=== PATIENT | female | born 1975 | race Caucasian/White ===

== ENCOUNTER → 2019-10-10 | Outpatient (CLI) | payer MEDICAID ==
[~2019-10-10] MED LIST: BUSP10TA95 PO; HYDR-2997 PO; LORA1TAB PO; METR500T PO; OMEP20TA7 PO; OXYC1TAB87 PO; RANI300T4 PO; VORT10TA PO; ZOLP10TA5 PO
[2019-10-10 11:27] LABS: HEMOGLOBIN 10.5 G/DL (11.5-16.0); MEAN CORPUSCULAR HEMOGLOBIN 28 PG (25-34); WHITE BLOOD COUNT 6.3 10^3/uL (4.3-11.0)
[2019-10-10 11:28] LABS: BASOPHILS % (AUTO) 1 % (0-10); EOSINOPHILS # (AUTO) 0.2 10^3/uL (0.0-0.3); EOSINOPHILS % (AUTO) 3 % (0-10); HEMATOCRIT 35 % (35-52); LYMPHOCYTES # (AUTO) 1.8 X 10^3 (1.0-4.0); LYMPHOCYTES % (AUTO) 29 % (12-44); MEAN CORPUSCULAR HGB CONC 30 G/DL (32-36); MEAN CORPUSCULAR VOLUME 92 FL (80-99); MEAN PLATELET VOLUME 9.8 FL (7.4-10.4); MONOCYTES # (AUTO) 0.6 X 10^3 (0.0-1.0); MONOCYTES % (AUTO) 9 % (0-12); NEUTROPHILS # (AUTO) 3.7 X 10^3 (1.8-7.8); NEUTROPHILS % (AUTO) 59 % (42-75); PLATELET COUNT 281 10^3/uL (130-400); RED CELL DISTRIBUTION WIDTH 14.8 % (10.0-14.5)
[2019-10-10 11:52] LABS: CLARITY,URINE CLEAR; COLOR,URINE YELLOW
[2019-10-10 11:53] LABS: BACTERIA,URINE NEGATIVE /HPF; BILIRUBIN,URINE NEGATIVE (NEGATIVE); GLUCOSE, URINE (UA) NEGATIVE (NEGATIVE); KETONES,URINE NEGATIVE (NEGATIVE); LEUKOCYTE ESTERASE ,URINE NEGATIVE (NEGATIVE); NITRITE,URINE NEGATIVE (NEGATIVE); PROTEIN,URINE NEGATIVE (NEGATIVE); RBC,URINE 0-2 /HPF; WBC,URINE 0-2 /HPF
[2019-10-10 11:54] LABS: ALANINE AMINOTRANSFERASE 5 U/L (0-55); ALKALINE PHOSPHATASE 91 U/L (40-136); BILIRUBIN,TOTAL 0.2 MG/DL (0.1-1.0); BUN/CREATININE RATIO 10; CALCIUM 7.6 MG/DL (8.5-10.1); CARBON DIOXIDE 28 MMOL/L (21-32); CHLORIDE 106 MMOL/L (98-107); GFR ESTIMATED > 60; GLUCOSE 84 MG/DL (70-105); POTASSIUM 3.8 MMOL/L (3.6-5.0); SODIUM 143 MMOL/L (135-145); TOTAL PROTEIN 5.6 GM/DL (6.4-8.2)
[2019-10-10 11:55] LABS: ALBUMIN 2.7 GM/DL (3.2-4.5)
== END ==
LOC: LAB FS 10:56
PROVIDERS: ATTEND Family Medicine
DX: J02.9 Acute pharyngitis, unspecified (principal); R11.2 Nausea with vomiting, unspecified
CPT/HCPCS: 36415; 80053; 81000; 82607; 85025

== ENCOUNTER 2019-10-12 11:28 | Outpatient (CLI) | payer MEDICAID ==
[~2019-10-12] VITALS: Ht 160 cm; Wt 85.0 kg
[~2019-10-12 11:28] MED LIST changes: -BUSP10TA95 PO; -LORA1TAB PO; -RANI300T4 PO; -VORT10TA PO; -ZOLP10TA5 PO
[2019-10-12 11:33] VITALS: BP 133/90
[2019-10-12] MEDS ORDERED: IRON SUCROSE INJECTION 300 MG in NS (IVPB) 250 ML IV ONE (11:45)
[2019-10-12] MEDS ORDERED: BUSP10TA95 PO (12:16)
[2019-10-12] MEDS ORDERED: ZOLP10TA5 PO (12:16)
[2019-10-12] MEDS ORDERED: LORA1TAB PO (12:16)
[2019-10-12] MEDS ORDERED: RANI300T4 PO (12:16)
[2019-10-12] MEDS ORDERED: VORT10TA PO (12:16)
== END 2019-10-12 13:45 | disposition home or self-care (01) ==
LOC: SDC 11:28
PROVIDERS: ATTEND Family Medicine
DX: E61.1 Iron deficiency (principal)
CPT/HCPCS: 96365

== ENCOUNTER 2020-01-04 15:05 | Emergency (ER) | payer MEDICAID ==
[~2020-01-04] VITALS: Ht 160 cm; Wt 71.0 kg
[~2020-01-04 15:05] MED LIST changes: +BUSP10TA95 PO; +LORA1TAB PO; +RANI300T4 PO; +VORT10TA PO; +ZOLP10TA5 PO
--- NOTE | 2020-01-04 15:16 | ED General ---
General Stated Complaint: DEHYDRATED,ABD PAIN History of Present Illness Date Seen by Provider: Jan 04, 2020 Time Seen by Provider: 15:16 Initial Comments Patient presenting to emergency department for evaluation of abdominal pain nausea vomiting. Patient had gastric bypass surgery in February 2019 and said she was doing well until 2-3 months ago when she started having these symptoms. She says the abdominal pain is epigastric sharp and radiates straight through to her back and is worse after eating. The nausea and vomiting she says happens after eating anything and she says that she feels very malnourished and dehydrated and feels as if she her body is shutting down and that she is dying. She says she has followed with her primary care provider and surgeon but no definitive diagnosis has been made. She denies fevers chills diarrhea constipation dysuria hematuria vaginal bleeding or vaginal discharge. She is in no obvious distress with normal vital signs. Allergies and Home Medications Allergies Coded Allergies: morphine (Unverified Adverse Reaction, Unknown, 10/12/19) Home Medications Buspirone HCl 10 Mg Tablet, 10 MG PO BID, (Reported) Lorazepam 1 Mg Tablet, 1 MG PO BID, (Reported) Ondansetron 4 Mg Tab.rapdis, 4 MG PO Q6H PRN for NAUSEA/VOMITING-1ST LINE Prescribed by: LEO RIOS on 01/04/201740 Potassium Chloride 20 Meq Tablet.er, 20 MEQ PO DAILY Prescribed by: LEO RIOS on 01/04/201740 Ranitidine HCl 300 Mg Tablet, 300 MG PO DAILY, (Reported) Vortioxetine Hydrobromide 10 Mg Tablet, 15 MG PO DAILY, (Reported) Zolpidem Tartrate 10 Mg Tablet, 10 MG PO HS, (Reported) Patient Home Medication List Home Medication List Reviewed: Yes Review of Systems Review of Systems Constitutional: no symptoms reported EENTM: no symptoms reported Respiratory: no symptoms reported Cardiovascular: no symptoms reported Gastrointestinal: abdominal pain, nausea, vomiting Genitourinary: no symptoms reported Musculoskeletal: back pain Skin: no symptoms reported Psychiatric/Neurological: No Symptoms Reported All Other Systems Reviewed Negative Unless Noted: Yes Past Gkfwury-Jminqr-Vvkvsn Hx Patient Social History Type Used: Cigarettes Recent Foreign Travel: No Contact w/Someone Who Travel: No Past Medical History Appendectomy, Gallbladder, Hysterectomy, Lumpectomy, Orthopedic Reproductive Disorders: No Female Reproductive Disorders: Denies Sexually Transmitted Disease: No HIV/AIDS: No Gastroesophageal Reflux, Chronic Diarrhea Loss of Vision: Denies Hearing Impairment: Denies Anxiety, Depression Adverse Reaction/Blood Tranf: No (N/A) Physical Exam Vital Signs Vital Signs - First Documented 01/04/20 15:25 Temp 37.3 Pulse 111 Resp 18 B/P (MAP) 147/94 (111) Pulse Ox 99 O2 Delivery Room Air Capillary Refill : Height, Weight, BMI Height: 5'3.00" Weight: 252lbs. 2.0oz. 114.376013zo; 41.93 BMI Method:Stated General Appearance: No Apparent Distress, WD/WN HEENT: PERRL/EOMI Neck: Supple Respiratory: No Respiratory Distress Cardiovascular: Regular Rate, Rhythm Gastrointestinal: Soft; No Guarding, No Rebound; Tenderness (epigastrum) Back: Normal Inspection Extremity: Normal Capillary Refill Neurologic/Psychiatric: Alert, Oriented x3 Skin: Warm/Dry Progress/Results/Core Measures Suspected Sepsis SIRS Temperature: Pulse: Respiratory Rate: Laboratory Tests 01/04/20 15:30: White Blood Count 9.4 Blood Pressure / Mean: Laboratory Tests 01/04/20 15:30: Creatinine 0.69, Platelet Count 351, Total Bilirubin 0.3 Results/Orders Lab Results Laboratory Tests Test 01/04/20 15:30 Range/Units White Blood Count 9.4 4.3-11.0 10^3/uL Red Blood Count 4.15 L 4.35-5.85 10^6/uL Hemoglobin 12.1 11.5-16.0 G/DL Hematocrit 37 35-52 % Mean Corpuscular Volume 90 80-99 FL Mean Corpuscular Hemoglobin 29 25-34 PG Mean Corpuscular Hemoglobin Concent 32 32-36 G/DL Red Cell Distribution Width 15.0 H 10.0-14.5 % Platelet Count 351 130-400 10^3/uL Mean Platelet Volume 10.1 7.4-10.4 FL Neutrophils (%) (Auto) 64 42-75 % Lymphocytes (%) (Auto) 28 12-44 % Monocytes (%) (Auto) 6 0-12 % Eosinophils (%) (Auto) 1 0-10 % Basophils (%) (Auto) 0 0-10 % Neutrophils # (Auto) 6.0 1.8-7.8 X 10^3 Lymphocytes # (Auto) 2.7 1.0-4.0 X 10^3 Monocytes # (Auto) 0.6 0.0-1.0 X 10^3 Eosinophils # (Auto) 0.1 0.0-0.3 10^3/uL Basophils # (Auto) 0.0 0.0-0.1 10^3/uL Sodium Level 139 135-145 MMOL/L Potassium Level 2.9 L 3.6-5.0 MMOL/L Chloride Level 101 98-107 MMOL/L Carbon Dioxide Level 27 21-32 MMOL/L Anion Gap 11 5-14 MMOL/L Blood Urea Nitrogen 10 7-18 MG/DL Creatinine 0.69 0.60-1.30 MG/DL Estimat Glomerular Filtration Rate > 60 BUN/Creatinine Ratio 14 Glucose Level 92 70-105 MG/DL Calcium Level 8.7 8.5-10.1 MG/DL Corrected Calcium 9.0 8.5-10.1 MG/DL Magnesium Level 2.0 1.6-2.4 MG/DL Total Bilirubin 0.3 0.1-1.0 MG/DL Aspartate Amino Transf (AST/SGOT) 11 5-34 U/L Alanine Aminotransferase (ALT/SGPT) 5 0-55 U/L Alkaline Phosphatase 117 40-136 U/L Total Protein 6.8 6.4-8.2 GM/DL Albumin 3.6 3.2-4.5 GM/DL Lipase 19 8-78 U/L My Orders Orders - LEO RIOS DO Cbc With Automated Diff (01/04/20 15:26) Comprehensive Metabolic Panel (01/04/20 15:26) Lipase (01/04/20 15:26) Magnesium (01/04/20 15:26) Ct Abdomen/Pelvis W (01/04/20 15:26) Ua Culture If Indicated (01/04/20 15:26) Ns Iv 1000 Ml (Sodium Chloride 0.9%) (01/04/20 15:30) Hcg,Qualitative Urine (01/04/20 15:26) Fentanyl Injection (Sublimaze Injection (01/04/20 15:45) Ondansetron Injection (Zofran Injectio (01/04/20 15:45) Iohexol Injection (Omnipaque 350 Mg/Ml 1 (01/04/20 15:45) Received Contrast (Hold Metformin- Contr (01/04/20 15:45) Sodium Chloride Flush (Catheter Flush Sy (01/04/20 15:45) Ns (Ivpb) (Sodium Chloride 0.9% Ivpb Bag (01/04/20 15:45) Potassium Chloride (Tablet) (K Dur Table (01/04/20 16:30) Ns Iv 1000 Ml (Sodium Chloride 0.9%) (01/04/20 18:00) Medications Given in ED Current Medications Medications Dose Ordered Sig/Noa Route Start Time Stop Time Status Last Admin Dose Admin Fentanyl Citrate 75 mcg ONCE ONCE IVP 01/04/20 15:45 01/04/20 15:46 DC 01/04/20 15:41 75 MCG Iohexol 100 ml ONCE ONCE IV 01/04/20 15:45 01/04/20 15:46 DC 01/04/20 17:27 100 ML Ondansetron HCl 4 mg ONCE ONCE IVP 01/04/20 15:45 01/04/20 15:46 DC 01/04/20 15:41 4 MG Potassium Chloride 40 meq ONCE ONCE PO 01/04/20 16:30 01/04/20 16:31 DC 01/04/20 16:32 40 MEQ Sodium Chloride 10 ml NEEDED PRN IV 01/04/20 15:45 01/04/20 17:27 10 ML Sodium Chloride 100 ml ONCE ONCE IV 01/04/20 15:45 01/04/20 15:46 DC 01/04/20 17:26 100 ML Vital Signs/I&O 01/04/20 15:25 Temp 37.3 Pulse 111 Resp 18 B/P (MAP) 147/94 (111) Pulse Ox 99 O2 Delivery Room Air Capillary Refill : Progress Note : Progress Note Patient with nonspecific abdominal pain nausea vomiting seems to be worse after eating. Differential diagnosis is quite wide at this time however given the description gastric etiology is most likely in my opinion. I will check labs urinalysis CT treat symptoms and reassess. Patient given fentanyl and Zofran and her pain and nausea have improved and she has repeat benign abdominal exam is able to take down fluids and potassium pills with no difficulty. Patient seems to be complaining mostly that she has felt weak and tired over the past several months and I reassured her there is nothing life-threatening going on at this time and some of her symptoms may be related to her low potassium said recommended taking in more potassium-containing foods and Gatorade. I told her follow with her primary care provider within 2-3 days and come back to the emergency Department sooner with worsening pain fevers vomiting or other general concerns. Patient aware and agreeable with plan and verbalized understanding of the need for short-term follow-up and strict ED return precautions discussed as above. Of note the incidental liver hemangioma was discussed and the need for follow-up and she verbalized understanding. Departure Impression Primary Impression: Abdominal pain Qualified Codes: R10.13 - Epigastric pain Additional Impressions: Nausea and vomiting Hypokalemia Disposition: HOME, SELF-CARE Condition: Stable Departure-Patient Inst. Referrals: LIBBY BROWN MD (PCP/Family) Primary Care Physician Patient Instructions: High Potassium Diet, Hypokalemia Scripts Potassium Chloride (Potassium Chloride) 20 Meq Tablet.er 20 MEQ PO DAILY, #7 TAB Prov: LEO RIOS DO 01/04/20 Ondansetron (Ondansetron Odt) 4 Mg Tab.rapdis 4 MG PO Q6H PRN for NAUSEA/VOMITING-1ST LINE, #14 TAB Prov: LEO RIOS DO 01/04/20 LEO ROIS DO Jan 04, 2020 15:16
[2020-01-04] MEDS ORDERED: NS IV 1000 ML 1,000 ML IV SCH ×2 (15:30→18:00)
[2020-01-04] MEDS ORDERED: IOHEXOL 350 MG/ML 100 ML (OMNIPAQUE 350) VIAL IV ONE (15:45)
[2020-01-04] MEDS ORDERED: ONDANSETRON 4 MG/2 ML (SDV) Z0FRAN IVP ONE (15:45)
[2020-01-04] MEDS ORDERED: NS 100 ML (IVPB) BAG IV ONE (15:45)
[2020-01-04] MEDS ORDERED: fentaNYL INJECTION 100 MCG/2 ML AMP IVP ONE (15:45)
[2020-01-04] MEDS ORDERED: HOLD METFORMIN - RECEIVED CONTRAST 20 ML VIAL IV SCH (15:45)
[2020-01-04] MEDS ORDERED: CATHETER FLUSH 10 ML SYR IV PRN (15:45)
[2020-01-04 15:47] LABS: HEMATOCRIT 37 % (35-52); HEMOGLOBIN 12.1 G/DL (11.5-16.0); MEAN CORPUSCULAR HEMOGLOBIN 29 PG (25-34); WHITE BLOOD COUNT 9.4 10^3/uL (4.3-11.0)
[2020-01-04 15:48] LABS: BASOPHILS % (AUTO) 0 % (0-10); EOSINOPHILS # (AUTO) 0.1 10^3/uL (0.0-0.3); EOSINOPHILS % (AUTO) 1 % (0-10); LYMPHOCYTES # (AUTO) 2.7 X 10^3 (1.0-4.0); LYMPHOCYTES % (AUTO) 28 % (12-44); MEAN CORPUSCULAR HGB CONC 32 G/DL (32-36); MEAN CORPUSCULAR VOLUME 90 FL (80-99); MEAN PLATELET VOLUME 10.1 FL (7.4-10.4); MONOCYTES # (AUTO) 0.6 X 10^3 (0.0-1.0); MONOCYTES % (AUTO) 6 % (0-12); NEUTROPHILS % (AUTO) 64 % (42-75); PLATELET COUNT 351 10^3/uL (130-400)
[2020-01-04 15:58] LABS: BUN/CREATININE RATIO 14; CALCIUM 8.7 MG/DL (8.5-10.1); CARBON DIOXIDE 27 MMOL/L (21-32); CHLORIDE 101 MMOL/L (98-107); CREATININE SERUM 0.69 MG/DL (0.60-1.30); GFR ESTIMATED > 60; GLUCOSE 92 MG/DL (70-105); POTASSIUM 2.9 MMOL/L (3.6-5.0); SODIUM 139 MMOL/L (135-145)
[2020-01-04 15:59] LABS: ALANINE AMINOTRANSFERASE 5 U/L (0-55); ALBUMIN 3.6 GM/DL (3.2-4.5); ALKALINE PHOSPHATASE 117 U/L (40-136); BILIRUBIN,TOTAL 0.3 MG/DL (0.1-1.0); LIPASE 19 U/L (8-78); TOTAL PROTEIN 6.8 GM/DL (6.4-8.2)
[2020-01-04] MEDS ORDERED: KCL 20 MEQ TAB (K-DUR) PO ONE (16:30)
[2020-01-04] MEDS ORDERED: POTA-51 PO (17:41)
[2020-01-04] MEDS ORDERED: ONDA4TAB11 PO (17:41)
[2020-01-04] MEDS ORDERED: NS IV 1000 ML 1,000 ML ONE (17:48)
--- NOTE | 2020-01-04 17:59 | Diagnostic Imaging Report ---
PROCEDURE: CT abdomen and pelvis with contrast. TECHNIQUE: Multiple contiguous axial images were obtained through the abdomen and pelvis after administration of intravenous contrast. Auto Exposure Controls were utilized during the CT exam to meet ALARA standards for radiation dose reduction. INDICATION: Nausea, vomiting, abdominal pain. COMPARISON: None available. FINDINGS: The visualized lung bases are clear. Diffusely decreased density of the liver, felt to relate to fatty infiltration of the liver. 8 mm focus of hyperenhancement is noted within the central aspect of the right hepatic lobe on the arterial-phase imaging. This is isoechoic on delayed imaging. Focal hypodensity is identified adjacent to the falciform ligament on both the arterial-phase and portal venous-phase imaging without definite mass effect. The spleen is unremarkable. Postsurgical changes of a gastric bypass are present. Cholecystectomy. The adrenal glands are unremarkable. The pancreas is unremarkable. Tiny sub 6 mm hypodensity within the inferior pole of the right kidney is too small to completely characterize. Otherwise, the bilateral kidneys are unremarkable. Bilateral ureters are unremarkable. No aneurysmal dilatation or dissection of the abdominal aorta. The urinary bladder is unremarkable. The uterus is not visualized, likely surgically absent. Moderate colonic diverticulosis without CT evidence of diverticulitis. Postsurgical changes of a prior appendectomy. No bowel obstruction or pneumatosis. No significant adenopathy, free air, or free fluid within the abdomen or pelvis. Limbus vertebra noted within the lumbar spine. No acute osseous abnormality. IMPRESSION: 1. Postsurgical changes of a gastric bypass without evidence of bowel obstruction. 2. 8 mm hyperenhancing focus within the central aspect of the right hepatic lobe. This is indeterminate and too small to completely characterize though favored to relate to a flash-filling hemangioma. Comparison to prior imaging would be recommended. If no prior imaging is available, then follow-up CT or MRI of the abdomen using hepatic mass protocol would be recommended in three to six months. This could also further evaluate the hypodensity adjacent to the falciform ligament favored to relate to focal fatty infiltration of the liver. 3. Colonic diverticulosis without CT evidence of diverticulitis. 4. Cholecystectomy, hysterectomy, and appendectomy. Dictated by: Dictated on workstation # [id number]
[2020-01-04 18:56] VITALS: BP 138/86
== END 2020-01-04 18:56 | disposition home or self-care (01) ==
LOC: EDUNIT# 15:05 → ER FS 15:07
DX: R10.13 Epigastric pain (principal); R11.2 Nausea with vomiting, unspecified; E87.6 Hypokalemia; F41.9 Anxiety disorder, unspecified; F32.9 Major depressive disorder, single episode, unspecified; K21.9 Gastro-esophageal reflux disease without esophagitis; Z88.5 Allergy status to narcotic agent; Z90.49 Acquired absence of other specified parts of digestive tract
CPT/HCPCS: 36415; 74177; 80053; 83690; 83735; 85025; 96361; 96374; 96375

== ENCOUNTER → 2020-07-28 | Outpatient (CLI) | payer MEDICAID ==
[~2020-07-28] MED LIST changes: +ONDA4TAB11 PO; +POTA-51 PO
--- NOTE | 2020-07-28 15:15 | Diagnostic Imaging Report ---
INDICATION: Injury to the left 4th toe 3 weeks ago. Pain 3 views of the toes of the left foot show no fracture, dislocation or other acute abnormality. IMPRESSION: No acute abnormality is seen. Dictated by: Dictated on workstation # [id number]
== END ==
LOC: RAD FS 14:19
PROVIDERS: ATTEND Family Medicine
DX: S99.922A Unspecified injury of left foot, initial encounter (principal)
CPT/HCPCS: 73660

== ENCOUNTER 2020-10-07 14:37 | Emergency (ER) | payer MEDICAID ==
[~2020-10-07] VITALS: Ht 160 cm; Wt 64.9 kg
[2020-10-07 14:49] VITALS: BP 142/93
--- NOTE | 2020-10-07 14:54 | ED General ---
General Chief Complaint: Psych/Social Disorder Stated Complaint: ANXIETY; HEADACHE History of Present Illness Date Seen by Provider: Oct 07, 2020 Time Seen by Provider: 14:53 Initial Comments Patient presenting to emergency department for evaluation of a headache and panic attack as she found out that her mother this morning and has been tearful and anxious since that time. She takes Xanax baseline but says it is not helping her anxiety and she called her primary care provider and they told her to come to the emergency department. She says she does have a history of migraine headaches but has not had one in a long time but this feels the same as prior migraine headaches. She describes it as pounding diffuse pain associated with nausea and photophobia but no vomiting neck stiffness vision changes unilateral weakness numbness or tingling. She is tearful and anxious bu t is in no obvious distress with normal vital signs. Allergies and Home Medications Allergies Coded Allergies: morphine (Unverified Adverse Reaction, Unknown, 10/12/19) Home Medications Buspirone HCl 10 Mg Tablet, 10 MG PO BID, (Reported) Lorazepam 1 Mg Tablet, 1 MG PO BID, (Reported) Ondansetron 4 Mg Tab.rapdis, 4 MG PO Q6H PRN for NAUSEA/VOMITING-1ST LINE Prescribed by: LEO RIOS on 01/04/201740 Potassium Chloride 20 Meq Tablet.er, 20 MEQ PO DAILY Prescribed by: LEO RIOS on 01/04/201740 Ranitidine HCl 300 Mg Tablet, 300 MG PO DAILY, (Reported) Vortioxetine Hydrobromide 10 Mg Tablet, 15 MG PO DAILY, (Reported) Zolpidem Tartrate 10 Mg Tablet, 10 MG PO HS, (Reported) Patient Home Medication List Home Medication List Reviewed: Yes Review of Systems Review of Systems Constitutional: no symptoms reported EENTM: no symptoms reported Respiratory: no symptoms reported Cardiovascular: no symptoms reported Gastrointestinal: nausea Musculoskeletal: no symptoms reported Skin: no symptoms reported Psychiatric/Neurological: Anxiety, Headache All Other Systems Reviewed Negative Unless Noted: Yes Past Ggxziqr-Kekkir-Szlnll Hx Patient Social History Type Used: Cigarettes 2nd Hand Smoke Exposure: No Recent Foreign Travel: No Contact w/Someone Who Travel: No Recent Hopitalizations: No Seasonal Allergies Seasonal Allergies: No Past Medical History Surgeries: Yes (BREAST REDUCTION, LUMP REMOVED (SCAR TISSUE) FROM BREAST, Gastric sleeve) Appendectomy, Gallbladder, Hysterectomy, Lumpectomy, Orthopedic Respiratory: No Cardiac: No Neurological: Yes Reproductive Disorders: No Female Reproductive Disorders: Denies USED [employer] History: Hysterectomy Sexually Transmitted Disease: No HIV/AIDS: No Gastrointestinal: Yes Gastroesophageal Reflux, Chronic Diarrhea Musculoskeletal: No Endocrine: Yes (THYROID NODULE) Loss of Vision: Denies Hearing Impairment: Denies Cancer: No Psychosocial: Yes Anxiety, Depression Integumentary: No Blood Disorders: No Adverse Reaction/Blood Tranf: No (N/A) Physical Exam Vital Signs Vital Signs - First Documented 10/07/20 14:49 Temp 36.7 Pulse 71 Resp 20 B/P (MAP) 142/93 (109) O2 Delivery Room Air Capillary Refill : Height, Weight, BMI Height: 5'3.00" Weight: 252lbs. 2.0oz. 114.960801pb; 27.00 BMI Method:Stated General Appearance: No Apparent Distress, Anxious HEENT: PERRL/EOMI Neck: Supple Respiratory: Lungs Clear, No Respiratory Distress Cardiovascular: Regular Rate, Rhythm Neurologic/Psychiatric: Alert, Oriented x3, No Motor/Sensory Deficits Skin: Warm/Dry Progress/Results/Core Measures Suspected Sepsis SIRS Temperature: Pulse: 71 Respiratory Rate: 20 Blood Pressure 142 /93 Mean: 109 Results/Orders My Orders Orders - LEO RIOS DO Ketorolac Injection (Toradol Injection) (10/07/20 15:00) Promethazine Injection (Phenergan Injec (10/07/20 15:00) Diphenhydramine Injection (Benadryl Inje (10/07/20 15:00) Lorazepam Tablet (Ativan Tablet) (10/07/20 15:00) Acetaminophen Tablet (Tylenol Tablet) (10/07/20 15:00) Medications Given in ED Current Medications Medications Dose Ordered Sig/Noa Route Start Time Stop Time Status Last Admin Dose Admin Acetaminophen 1,000 mg ONCE ONCE PO 10/07/20 15:00 10/07/20 15:02 DC 10/07/20 15:12 1,000 MG Diphenhydramine HCl 50 mg ONCE ONCE IM 10/07/20 15:00 10/07/20 15:02 DC 10/07/20 15:11 50 MG Ketorolac Tromethamine 60 mg ONCE ONCE IM 10/07/20 15:00 10/07/20 15:02 DC 10/07/20 15:11 60 MG Promethazine HCl 12.5 mg ONCE ONCE IM/IV 10/07/20 15:00 10/07/20 15:02 DC 10/07/20 15:11 12.5 MG Vital Signs/I&O 10/07/20 14:49 Temp 36.7 Pulse 71 Resp 20 B/P (MAP) 142/93 (109) O2 Delivery Room Air Capillary Refill : Less Than 3 Seconds Progress Note : Progress Note Patient with a panic episode and symptoms consistent with a migraine headache. She was given Phenergan Benadryl Toradol Tylenol and Ativan and her headache and anxiety improved significantly. She has repeat normal neurologic exam and her vital signs continue be normal so she'll be discharged in stable condition told to follow primary care provider soon as she can and come back to the ED sooner with any new worsening symptoms. Patient aware and agreeable with plan and verbalized understanding of the above instructions. Departure Impression Primary Impression: Bereavement reaction Additional Impressions: Migraine headache Anxiety Disposition: 01 HOME, SELF-CARE Condition: Stable Departure-Patient Inst. Referrals: LIBBY BROWN MD (PCP/Family) Primary Care Physician Patient Instructions: Dealing With , Adult, Migraines (DC) LEO RIOS DO Oct 07, 2020 14:54
[2020-10-07] MEDS ORDERED: ACETAMINOPHEN 500 MG TAB (TYLENOL) PO ONE (15:00)
[2020-10-07] MEDS ORDERED: LORazepam 0.5 MG (ATIVAN) TABLET PO STA (15:00)
[2020-10-07] MEDS ORDERED: KETOROLAC 60 MG/2 ML VIAL IM ONE (15:00)
[2020-10-07] MEDS ORDERED: PROMETHAZINE INJ 25 MG/ML (PHENERGAN) AMP IM/IV ONE (15:00)
[2020-10-07] MEDS ORDERED: diphenhydrAMINE 50 MG/ML INJ (BENADRYL) IM ONE (15:00)
== END 2020-10-07 15:35 | disposition home or self-care (01) ==
LOC: EDUNIT# 14:37 → ER FS 14:38
DX: F43.22 Adjustment disorder with anxiety (principal); G43.909 Migraine, unspecified, not intractable, without status migrainosus; F32.9 Major depressive disorder, single episode, unspecified; Z88.5 Allergy status to narcotic agent
CPT/HCPCS: 99284

== ENCOUNTER → 2020-12-26 | Outpatient (CLI) | payer MEDICAID ==
--- NOTE | 2020-12-26 11:56 | Diagnostic Imaging Report ---
INDICATION: Foot pain, injury COMPARISON: 07/28/2020 TECHNIQUE: 3 radiographs left foot dated 12/26/2020 FINDINGS: Recent nondisplaced fracturing of the distal shaft of the 5th digit proximal phalanx is identified. Fracture appears to be transversely oriented without definitive intra-articular extension. No additional acute fracture or dislocation. No destructive osseous process. Small posterior and plantar calcaneal enthesophytes. No suspicious radiopaque foreign body. IMPRESSION: Recent nondisplaced fracture involving the distal shaft of the 5th digit proximal phalanx without definite intra-articular extension. Dictated by: Dictated on workstation # [id number]
== END ==
LOC: RAD FS 10:12
PROVIDERS: ATTEND Nurse Practitioner Family
DX: S92.525A Nondisplaced fracture of middle phalanx of left lesser toe(s), initial encounter for closed fracture (principal)
CPT/HCPCS: 73630

== ENCOUNTER 2021-03-03 01:38 | Emergency (ER) | payer MEDICAID ==
[~2021-03-03] VITALS: Ht 160 cm; Wt 73.5 kg
--- NOTE | 2021-03-03 02:03 | ED Chest Pain ---
General Chief Complaint: Chest Wall Stated Complaint: RIGHT SIDE RIB PAIN Nursing Triage Note: pt states 2 days of right lateral rib pain with no known injury, pt was moving lst week moving boxes Nursing Sepsis Screen: No Definite Risk Source: patient Exam Limitations: no limitations History of Present Illness Date Seen by Provider: Mar 03, 2021 Time Seen by Provider: 01:45 Initial Comments Patient is a 45-year-old who presents with a right rib/chest wall pain/tenderness for the past 2 days. Patient states she was moving large by sixes last week and is unsure if she cracked a rib. Pain is described as continuous, nonradiating and nonmigratory. it is dull, rated moderate to severe and is generally located under the right breast region. Pain is worse with palpation, movement and right arm use. Patient denies shortness of breath nausea sweats, leg pain or swelling. No cough fever, sore throat. No other acute symptoms or complaints. No other acute symptoms or complaints. 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 Associated Symptoms: weakness Allergies and Home Medications Allergies Coded Allergies: morphine (Unverified Adverse Reaction, Unknown, 10/12/19) Home Medications Buspirone HCl 10 Mg Tablet, 10 MG PO BID, (Reported) Lorazepam 1 Mg Tablet, 1 MG PO BID, (Reported) Ondansetron 4 Mg Tab.rapdis, 4 MG PO Q6H PRN for NAUSEA/VOMITING-1ST LINE Prescribed by: LEO RIOS on 01/04/201740 Potassium Chloride 20 Meq Tablet.er, 20 MEQ PO DAILY Prescribed by: LEO RIOS on 01/04/201740 Ranitidine HCl 300 Mg Tablet, 300 MG PO DAILY, (Reported) Vortioxetine Hydrobromide 10 Mg Tablet, 15 MG PO DAILY, (Reported) Zolpidem Tartrate 10 Mg Tablet, 10 MG PO HS, (Reported) Patient Home Medication List Home Medication List Reviewed: Yes Review of Systems Review of Systems Constitutional: no symptoms reported EENTM: No Symptoms Reported Respiratory: See HPI Cardiovascular: See HPI Gastrointestinal: No Symptoms Reported Genitourinary: No Symptoms Reported Musculoskeletal: no symptoms reported Psychiatric/Neurological: No Symptoms Reported Endocrine: No Symptoms Reported Hematologic/Lymphatic: No Symptoms Reported All Other Systems Reviewed Negative Unless Noted: Yes Past Fwliubg-Mvzbvc-Gbnvew Hx Past Med/Social Hx: Reviewed Nursing Past Med/Soc Hx Patient Social History Alcohol Use: Occasionally Uses Type Used: Cigarettes 2nd Hand Smoke Exposure: No Recent Infectious Disease Expo: No Recent Hopitalizations: No Seasonal Allergies Seasonal Allergies: No Past Medical History Surgeries: Yes (BREAST REDUCTION, LUMP REMOVED (SCAR TISSUE) FROM BREAST, Gastric sleeve) Appendectomy, Gallbladder, Hysterectomy, Lumpectomy, Orthopedic Respiratory: No Cardiac: No Neurological: Yes Reproductive Disorders: No Female 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 Sexually Transmitted Disease: No HIV/AIDS: No Genitourinary: No Gastrointestinal: Yes Gastroesophageal Reflux, Chronic Diarrhea Musculoskeletal: No Endocrine: Yes (THYROID NODULE) HEENT: No Loss of Vision: Denies Hearing Impairment: Denies Cancer: No Psychosocial: Yes Anxiety, Depression Integumentary: No Blood Disorders: No Adverse Reaction/Blood Tranf: No (N/A) Physical Exam Vital Signs Vital Signs - First Documented 03/03/21 01:50 Temp 36.9 Pulse 84 Resp 16 B/P (MAP) 136/88 (104) Pulse Ox 97 O2 Delivery Room Air Capillary Refill : Less Than 3 Seconds Height, Weight, BMI Height: 5'3.00" Weight: 252lbs. 2.0oz. [id number]; 28.00 BMI Method:Stated General Appearance: No Apparent Distress, WD/WN HEENT: Normal ENT Inspection, Pharynx Normal Neck: Full Range of Motion, Non Tender, Supple Respiratory: Lungs Clear, No Accessory Muscle Use, No Respiratory Distress; No Decreased Breath Sounds (Chest wall pain/tenderness deep to right breast. No subcutaneous ED emphysema, point bony tenderness. Reproduces with right shoulder movement.), No Expiration, No Inspiration, No Pleural Rub, No Rales; Ot her Cardiovascular: Regular Rate, Rhythm, Other (Mild symmetric peripheral edema) Gastrointestinal: Non Tender, Soft Extremity: Normal Capillary Refill, Normal Inspection, No Calf Tenderness Neurologic/Psychiatric: Alert, Oriented x3, Normal Mood/Affect Skin: Normal Color Focused Exam Sepsis Stage: Ruled Out Progress/Results/Core Measures Results/Orders Lab Results Laboratory Tests Test 03/03/21 02:20 Range/Units White Blood Count 7.4 4.3-11.0 10^3/uL Red Blood Count 3.88 L 4.35-5.85 10^6/uL Hemoglobin 11.5 11.5-16.0 G/DL Hematocrit 36 35-52 % Mean Corpuscular Volume 94 80-99 FL Mean Corpuscular Hemoglobin 30 25-34 PG Mean Corpuscular Hemoglobin Concent 32 32-36 G/DL Red Cell Distribution Width 17.1 H 10.0-14.5 % Platelet Count 244 130-400 10^3/uL Mean Platelet Volume 10.1 7.4-10.4 FL Immature Granulocyte % (Auto) 0 % Neutrophils (%) (Auto) 73 42-75 % Lymphocytes (%) (Auto) 12 12-44 % Monocytes (%) (Auto) 10 0-12 % Eosinophils (%) (Auto) 4 0-10 % Basophils (%) (Auto) 1 0-10 % Neutrophils # (Auto) 5.4 1.8-7.8 X 10^3 Lymphocytes # (Auto) 0.9 L 1.0-4.0 X 10^3 Monocytes # (Auto) 0.7 0.0-1.0 X 10^3 Eosinophils # (Auto) 0.3 0.0-0.3 10^3/uL Basophils # (Auto) 0.0 0.0-0.1 10^3/uL Immature Granulocyte # (Auto) 0.0 0.0-0.1 10^3/uL D-Dimer 0.35 0.00-0.49 UG/ML Sodium Level 137 135-145 MMOL/L Potassium Level 4.1 3.6-5.0 MMOL/L Chloride Level 103 98-107 MMOL/L Carbon Dioxide Level 28 21-32 MMOL/L Anion Gap 6 5-14 MMOL/L Blood Urea Nitrogen 13 7-18 MG/DL Creatinine 0.71 0.60-1.30 MG/DL Estimat Glomerular Filtration Rate > 60 BUN/Creatinine Ratio 18 Glucose Level 103 70-105 MG/DL Calcium Level 8.7 8.5-10.1 MG/DL Corrected Calcium 8.6 8.5-10.1 MG/DL Total Bilirubin < 0.2 0.1-1.0 MG/DL Aspartate Amino Transf (AST/SGOT) 15 5-34 U/L Alanine Aminotransferase (ALT/SGPT) 12 0-55 U/L Alkaline Phosphatase 107 40-136 U/L Troponin I < 0.30 <0.30 NG/ML Total Protein 6.8 6.4-8.2 GM/DL Albumin 4.1 3.2-4.5 GM/DL My Orders Orders - HARRIET VALENCIA DO Ribs 2-3 View Right (03/03/21 01:53) Cbc With Automated Diff (03/03/21 02:12) Comprehensive Metabolic Panel (03/03/21 02:12) Troponin I Fs (03/03/21 02:12) Fibrin Degradation Products (03/03/21 02:12) Ekg-Prn For Chest Pain Or Rhyt (03/03/21 02:12) Vital Signs/I&O 03/03/21 01:50 Temp 36.9 Pulse 84 Resp 16 B/P (MAP) 136/88 (104) Pulse Ox 97 O2 Delivery Room Air Blood Pressure Mean: 104 Departure Communication (Admissions) Family Conversation EKG: Normal sinus rhythm, rate 68, no acute ST-T wave changes, QTC 431, VT 148. Right rib series: No obvious rib fracture or pulmonary infiltrate. Reproducible chest wall pain without pinpoint or bony tenderness. No shortness of breath fever cough. Rib series unremarkable. EKG lab reviewed and reassuring. Will treat for chest wall strain presumably from lifting earlier this week. Return precautions reviewed. Patient verbalizes understanding agreement discharge instructions prior to departure. Impression Primary Impression: Chest wall pain Disposition: HOME, SELF-CARE Condition: Stable Departure-Patient Inst. Decision time for Depature: 03:19 Referrals: LIBBY BROWN MD (PCP/Family) Primary Care Physician Patient Instructions: Chest Pain, Adult ED Add. Discharge Instructions: You were evaluated the emergency department for chest wall pain. EKG lab and imaging were performed and are reassuring. The exact cause of your symptoms has not been determined but is likely related to underlying chest wall strain. Please take ibuprofen for pain and newly prescribed pain medication as needed. Avoid heavy lifting and strenuous physical activity. Follow-up with your PCP in 2 to 3 days for reevaluation if symptoms persist. Return to the ED if new or worsening symptoms All discharge instructions reviewed with patient and/or family. Voiced under standing. Scripts Tramadol HCl (Tramadol HCl) 50 Mg Tablet 50 MG PO Q6H PRN for PAIN for 3 Days, #14 TAB 0 Refills Prov: HARRIET VALENCIA DO 03/03/21 HARRIET VALENCIA DO Mar 03, 2021 02:03
[2021-03-03 02:26] LABS: BASOPHILS % (AUTO) 1 % (0-10); EOSINOPHILS # (AUTO) 0.3 10^3/uL (0.0-0.3); EOSINOPHILS % (AUTO) 4 % (0-10); HEMATOCRIT 36 % (35-52); HEMOGLOBIN 11.5 G/DL (11.5-16.0); LYMPHOCYTES # (AUTO) 0.9 X 10^3 (1.0-4.0); LYMPHOCYTES % (AUTO) 12 % (12-44); MEAN CORPUSCULAR HEMOGLOBIN 30 PG (25-34); MEAN CORPUSCULAR HGB CONC 32 G/DL (32-36); MEAN CORPUSCULAR VOLUME 94 FL (80-99); MEAN PLATELET VOLUME 10.1 FL (7.4-10.4); MONOCYTES # (AUTO) 0.7 X 10^3 (0.0-1.0); MONOCYTES % (AUTO) 10 % (0-12); NEUTROPHILS # (AUTO) 5.4 X 10^3 (1.8-7.8); NEUTROPHILS % (AUTO) 73 % (42-75); PLATELET COUNT 244 10^3/uL (130-400); WHITE BLOOD COUNT 7.4 10^3/uL (4.3-11.0)
[2021-03-03 02:47] LABS: ALANINE AMINOTRANSFERASE 12 U/L (0-55); ALBUMIN 4.1 GM/DL (3.2-4.5); ALKALINE PHOSPHATASE 107 U/L (40-136); BILIRUBIN,TOTAL < 0.2 MG/DL (0.1-1.0); BUN/CREATININE RATIO 18; CALCIUM 8.7 MG/DL (8.5-10.1); CARBON DIOXIDE 28 MMOL/L (21-32); CHLORIDE 103 MMOL/L (98-107); CREATININE SERUM 0.71 MG/DL (0.60-1.30); GFR ESTIMATED > 60; GLUCOSE 103 MG/DL (70-105); POTASSIUM 4.1 MMOL/L (3.6-5.0); SODIUM 137 MMOL/L (135-145); TOTAL PROTEIN 6.8 GM/DL (6.4-8.2)
[2021-03-03] MEDS ORDERED: TRM50T PO (03:21)
[2021-03-03 03:24] VITALS: BP 136/88
--- NOTE | 2021-03-03 07:11 | Diagnostic Imaging Report ---
INDICATION: Right chest wall pain AP and oblique views of the right ribs are obtained. FINDINGS: There is no evidence of pleural reaction or pneumothorax. No acute fracture or dislocation is identified. No abnormal lytic or sclerotic focus is seen, and there is no radiopaque foreign body. IMPRESSION: No acute abnormality. Dictated by: Dictated on workstation # [id number]
== END 2021-03-03 03:24 | disposition home or self-care (01) ==
LOC: EDUNIT# 01:38 → ER FS 01:41
DX: R07.89 Other chest pain (principal); F41.9 Anxiety disorder, unspecified; F32.9 Major depressive disorder, single episode, unspecified; K21.9 Gastro-esophageal reflux disease without esophagitis; Z88.5 Allergy status to narcotic agent
CPT/HCPCS: 36415; 71100; 80053; 84484; 85025; 85379; 93005

== ENCOUNTER 2021-03-21 13:27 | Emergency (ER) | payer MEDICAID ==
[~2021-03-21] VITALS: Ht 160 cm; Wt 73.5 kg
[~2021-03-21 13:27] MED LIST changes: -FAMO-119 PO; -PRD20T PO
[2021-03-21] MEDS ORDERED: FAMOTIDINE 20MG/2ML IV (PEPCID) ONE (13:33)
[2021-03-21] MEDS ORDERED: methylPREDNISolone 125 MG (Solu-MEDROL) VIAL ONE (13:33)
--- NOTE | 2021-03-21 13:38 | ED General ---
General Stated Complaint: SYNCOPE Source of Information: Patient, EMS Exam Limitations: No Limitations History of Present Illness Date Seen by Provider: Mar 21, 2021 Time Seen by Provider: 13:30 Initial Comments 45-year-old female presents via EMS after having a presumed allergic reaction to sulfa. Patient states she took 1 antibiotic pill today and later started to feel hot and sweaty and EMS was called because bystanders/family members thought she had a seizure. On arrival EMS states she was awake, but somewhat lethargic, but coherent and apparently had had more of a syncopal episode. Her skin was flushed and red, her breathing was normal and IV was started fluids were given due to having a low blood pressure and Benadryl was given 25 mg IV. On arrival patient awake and alert, feeling a little bit better. Denies difficulty breathing, shortness of air or wheezing, mouth tongue or throat swelling. Allergies and Home Medications Allergies Coded Allergies: morphine (Unverified Adverse Reaction, Unknown, 10/12/19) Home Medications Buspirone HCl 10 Mg Tablet, 10 MG PO BID, (Reported) Famotidine 20 Mg Tablet, 20 MG PO BID Prescribed by: BREANN QUIROGA on 03/21/21 1427 Lorazepam 1 Mg Tablet, 1 MG PO BID, (Reported) Ondansetron 4 Mg Tab.rapdis, 4 MG PO Q6H PRN for NAUSEA/VOMITING-1ST LINE Prescribed by: LEO RIOS on 01/04/201740 Potassium Chloride 20 Meq Tablet.er, 20 MEQ PO DAILY Prescribed by: LEO RIOS on 01/04/201740 Prednisone 20 Mg Tab, 40 MG PO DAILY Prescribed by: BREANN QUIROGA on 03/21/21 1427 Ranitidine HCl 300 Mg Tablet, 300 MG PO DAILY, (Reported) Tramadol HCl 50 Mg Tablet, 50 MG PO Q6H PRN for PAIN Prescribed by: HARRIET VALENCIA on 03/03/21 0321 Vortioxetine Hydrobromide 10 Mg Tablet, 15 MG PO DAILY, (Reported) Zolpidem Tartrate 10 Mg Tablet, 10 MG PO HS, (Reported) Patient Home Medication List Home Medication List Reviewed: Yes Review of Systems Review of Systems Constitutional: see HPI; No chills, No dizziness, No fever; malaise; No weakness EENTM: no symptoms reported Respiratory: no symptoms reported; No cough, No short of breath Cardiovascular: No chest pain, No edema, No palpitations Gastrointestinal: No abdominal pain, No loss of appetite, No nausea, No v omiting Musculoskeletal: No back pain, No joint pain Skin: change in color (redness- generalized of trunk and extremities); No lesions, No lumps, No rash Psychiatric/Neurological: Denies Headache, Denies Numbness, Denies Paresthesia, Denies Seizure Past Jsnqirb-Dddmvr-Pevneb Hx Past Med/Social Hx: Reviewed Nursing Past Med/Soc Hx Patient Social History Type Used: Cigarettes 2nd Hand Smoke Exposure: No Recent Hopitalizations: No Seasonal Allergies Seasonal Allergies: No Past Medical History Surgeries: Yes (BREAST REDUCTION, LUMP REMOVED (SCAR TISSUE) FROM BREAST, Gastric sleeve) Appendectomy, Gallbladder, Hysterectomy, Lumpectomy, Orthopedic Respiratory: No Cardiac: No Neurological: Yes Reproductive Disorders: No 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 2.0oz. 114.526900fl; 28.00 BMI Method:Stated General Appearance: No Apparent Distress, WD/WN Eyes: Bilateral Eye Normal Inspection, Bilateral Eye PERRL, Bilateral Eye EOMI HEENT: PERRL/EOMI, Normal ENT Inspection Neck: Non Tender, Supple Respiratory: Chest Non Tender, Lungs Clear, Normal Breath Sounds Cardiovascular: Regular Rate, Rhythm, No Edema, No JVD Gastrointestinal: Normal Bowel Sounds, Non Tender, Soft Back: Normal Inspection, No CVA Tenderness Extremity: Normal Capillary Refill, Non Tender Neurologic/Psychiatric: Alert, Oriented x3, No Motor/Sensory Deficits, Normal Mood/Affect Skin: No Cool, No Cyanosis; Erythema (generalized) Progress/Results/Core Measures Suspected Sepsis SIRS Temperature: Pulse: Respiratory Rate: Laboratory Tests 03/21/21 14:00: White Blood Count 7.0 Blood Pressure / Mean: Laboratory Tests 03/21/21 14:00: Creatinine 0.79, Platelet Count 337, Total Bilirubin 0.2 Results/Orders Lab Results Laboratory Tests Test 03/21/21 14:00 Range/Units White Blood Count 7.0 4.3-11.0 10^3/uL Red Blood Count 4.04 L 4.35-5.85 10^6/uL Hemoglobin 12.1 11.5-16.0 G/DL Hematocrit 38 35-52 % Mean Corpuscular Volume 95 80-99 FL Mean Corpuscular Hemoglobin 30 25-34 PG Mean Corpuscular Hemoglobin Concent 32 32-36 G/DL Red Cell Distribution Width 14.9 H 10.0-14.5 % Platelet Count 337 130-400 10^3/uL Mean Platelet Volume 9.7 7.4-10.4 FL Immature Granulocyte % (Auto) 0 % Neutrophils (%) (Auto) 60 42-75 % Lymphocytes (%) (Auto) 33 12-44 % Monocytes (%) (Auto) 5 0-12 % Eosinophils (%) (Auto) 2 0-10 % Basophils (%) (Auto) 0 0-10 % Neutrophils # (Auto) 4.2 1.8-7.8 X 10^3 Lymphocytes # (Auto) 2.3 1.0-4.0 X 10^3 Monocytes # (Auto) 0.4 0.0-1.0 X 10^3 Eosinophils # (Auto) 0.2 0.0-0.3 10^3/uL Basophils # (Auto) 0.0 0.0-0.1 10^3/uL Immature Granulocyte # (Auto) 0.0 0.0-0.1 10^3/uL Sodium Level 138 135-145 MMOL/L Potassium Level 3.3 L 3.6-5.0 MMOL/L Chloride Level 106 98-107 MMOL/L Carbon Dioxide Level 25 21-32 MMOL/L Anion Gap 7 5-14 MMOL/L Blood Urea Nitrogen 9 7-18 MG/DL Creatinine 0.79 0.60-1.30 MG/DL Estimat Glomerular Filtration Rate > 60 BUN/Creatinine Ratio 11 Glucose Level 116 H 70-105 MG/DL Calcium Level 8.1 L 8.5-10.1 MG/DL Corrected Calcium 8.6 8.5-10.1 MG/DL Total Bilirubin 0.2 0.1-1.0 MG/DL Aspartate Amino Transf (AST/SGOT) 11 5-34 U/L Alanine Aminotransferase (ALT/SGPT) 8 0-55 U/L Alkaline Phosphatase 92 40-136 U/L C-Reactive Protein 0.30 <0.50 MG/DL Total Protein 5.7 L 6.4-8.2 GM/DL Albumin 3.4 3.2-4.5 GM/DL My Orders Orders - ROVENSTINE,BREANN L DO Methylprednisolone Sod Succ (Solu-Medrol (03/21/21 13:45) Famotidine Injection (Pepcid Injection) (03/21/21 13:45) Cbc With Automated Diff (03/21/21 13:39) Comprehensive Metabolic Panel (03/21/21 13:39) Crp Fs (03/21/21 13:39) Methylprednisolone Sod Succ (Solu-Medrol (03/21/21 13:33) Famotidine Injection (Pepcid Injection) (03/21/21 13:33) Ondansetron Injection (Zofran Injectio (03/21/21 14:00) Ondansetron Injection (Zofran Injectio (03/21/21 13:44) Ns Iv 1000 Ml (Sodium Chloride 0.9%) (03/21/21 13:44) Medications Given in ED Current Medications Medications Dose Ordered Sig/Noa Route Start Time Stop Time Status Last Admin Dose Admin Famotidine 20 mg ONCE ONCE IVP 03/21/21 13:45 03/21/21 13:46 DC 03/21/21 13:41 20 MG Methylprednisolone Sodium Succinate 125 mg ONCE ONCE IVP 03/21/21 13:45 03/21/21 13:46 DC 03/21/21 13:41 125 MG Ondansetron HCl 4 mg ONCE ONCE IVP 03/21/21 14:00 03/21/21 14:01 DC 03/21/21 13:55 4 MG Sodium Chloride 1,000 ml @ STK-MED ONCE .ROUTE 03/21/21 13:44 03/21/21 13:51 DC 03/21/21 13:57 999 MLS/HR Vital Signs/I&O 03/21/21 03/21/21 13:34 14:50 Temp 36.3 Pulse 86 64 Resp 16 20 B/P (MAP) 87/57 (67) 110/68 Pulse Ox 97 97 O2 Delivery Room Air Room Air Capillary Refill : Progress Note : Progress Note Notified by distribution engineering technologist that patient had received an x-ray of her left hand and index finger as an outpatient today. This was part of a work-up for her swollen left finger, the reason she was given an antibiotic was for presumed infection. All of this led to her taking a Bactrim resulting in an adverse reaction today and ER visit. REviewed x-rays myself, confirming left index, mid phalynx oblique fx. Alumifoam finger splint given. Advised f/u to eval for healing in 2 wks w PCP. Patient much improved p steroids and IVF. pressure improved, whole body redness resolved. Discussed Rx for a few days to avoid further reaction until medication is out of her system. Pt agrees and understands. Departure Impression Primary Impression: Adverse drug reaction Qualified Codes: T50.905A - Adverse effect of unspecified drugs, medicaments and biological substances, initial encounter Additional Impression: Finger fracture, left Qualified Codes: S62.651A - Nondisplaced fracture of middle phalanx of left index finger, initial encounter for closed fracture Disposition: 01 HOME, SELF-CARE Condition: Improved Departure-Patient Inst. Decision time for Depature: 14:42 Referrals: LIBBY BROWN MD (PCP/Family) Primary Care Physician Patient Instructions: Adverse Drug Reactions, Adult, Finger Fracture ED Add. Discharge Instructions: Follow up with Dr Brown in 2 weeks for re-evaluation and to consider repeat finger x-ray Notify your doctor and any future medical providers of your allergy to Bactrim/ sulfa. Never take it again. You may take [id number] (OTC) Benadryl 25 mg every 4-6 hours as needed for any further allergic reaction, skin redness or swelling. If you have an allergic reaction uncontrolled with Benadryl and the prescriptions given to you today, call 911. Scripts Famotidine (Pepcid) 20 Mg Tablet 20 MG PO BID, #10 TAB Prov: BREANN QUIROGA DO 03/21/21 Prednisone (Prednisone) 20 Mg Tab 40 MG PO DAILY, #6 TAB 0 Refills Prov: BREANN QUIROGA DO 03/21/21 BREANN QUIROGA DO Mar 21, 2021 13:38
[2021-03-21] MEDS ORDERED: NS IV 1000 ML 1,000 ML ONE (13:44)
[2021-03-21] MEDS ORDERED: ONDANSETRON 4 MG/2 ML (SDV) Z0FRAN ONE (13:44)
[2021-03-21] MEDS ORDERED: FAMOTIDINE 20MG/2ML IV (PEPCID) IVP ONE (13:45)
[2021-03-21] MEDS ORDERED: methylPREDNISolone 125 MG (Solu-MEDROL) VIAL IVP ONE (13:45)
[2021-03-21] MEDS ORDERED: ONDANSETRON 4 MG/2 ML (SDV) Z0FRAN IVP ONE (14:00)
[2021-03-21 14:20] LABS: BASOPHILS % (AUTO) 0 % (0-10); EOSINOPHILS # (AUTO) 0.2 10^3/uL (0.0-0.3); EOSINOPHILS % (AUTO) 2 % (0-10); HEMATOCRIT 38 % (35-52); HEMOGLOBIN 12.1 G/DL (11.5-16.0); LYMPHOCYTES # (AUTO) 2.3 X 10^3 (1.0-4.0); LYMPHOCYTES % (AUTO) 33 % (12-44); MEAN CORPUSCULAR HEMOGLOBIN 30 PG (25-34); MEAN CORPUSCULAR HGB CONC 32 G/DL (32-36); MEAN CORPUSCULAR VOLUME 95 FL (80-99); MEAN PLATELET VOLUME 9.7 FL (7.4-10.4); MONOCYTES # (AUTO) 0.4 X 10^3 (0.0-1.0); MONOCYTES % (AUTO) 5 % (0-12); NEUTROPHILS # (AUTO) 4.2 X 10^3 (1.8-7.8); NEUTROPHILS % (AUTO) 60 % (42-75); PLATELET COUNT 337 10^3/uL (130-400)
[2021-03-21] MEDS ORDERED: PRD20T PO (14:27)
[2021-03-21] MEDS ORDERED: FAMO-119 PO (14:27)
[2021-03-21 14:34] LABS: CARBON DIOXIDE 25 MMOL/L (21-32); CHLORIDE 106 MMOL/L (98-107); POTASSIUM 3.3 MMOL/L (3.6-5.0); SODIUM 138 MMOL/L (135-145)
[2021-03-21 14:35] LABS: ALANINE AMINOTRANSFERASE 8 U/L (0-55); ALBUMIN 3.4 GM/DL (3.2-4.5); ALKALINE PHOSPHATASE 92 U/L (40-136); BILIRUBIN,TOTAL 0.2 MG/DL (0.1-1.0); BUN/CREATININE RATIO 11; CALCIUM 8.1 MG/DL (8.5-10.1); CREATININE SERUM 0.79 MG/DL (0.60-1.30); GFR ESTIMATED > 60; GLUCOSE 116 MG/DL (70-105); TOTAL PROTEIN 5.7 GM/DL (6.4-8.2)
[2021-03-21 14:50] VITALS: BP 110/68
== END 2021-03-21 14:50 | disposition home or self-care (01) ==
LOC: EDUNIT# 13:27 → ER FS 13:28
DX: S62.621A Displaced fracture of middle phalanx of left index finger, initial encounter for closed fracture (principal); T36.95XA Adverse effect of unspecified systemic antibiotic, initial encounter; K21.9 Gastro-esophageal reflux disease without esophagitis; F41.9 Anxiety disorder, unspecified; F32.9 Major depressive disorder, single episode, unspecified; Z88.5 Allergy status to narcotic agent; Z79.52 Long term (current) use of systemic steroids; Z79.899 Other long term (current) drug therapy; X58.XXXA Exposure to other specified factors, initial encounter
CPT/HCPCS: 29130; 36415; 80053; 85025; 86141; 96361; 96374; 96375

== ENCOUNTER → 2021-03-21 | Outpatient (CLI) | payer MEDICAID ==
[~2021-03-21] MED LIST changes: +FAMO-119 PO; +PRD20T PO; +TRM50T PO
--- NOTE | 2021-03-21 12:13 | Diagnostic Imaging Report ---
INDICATION: Left hand pain 3 views of left hand show an oblique fracture of the shaft of the middle phalanx of the left index finger with very slight dorsal angulation of the distal component. IMPRESSION: Minimally angulated oblique fracture middle phalanx left index finger. Dictated by: Dictated on workstation # [id number]
== END ==
LOC: RAD FS 11:51
PROVIDERS: ATTEND Nurse Practitioner Family
DX: M79.645 Pain in left finger(s) (principal); M79.642 Pain in left hand
CPT/HCPCS: 73140

== ENCOUNTER 2021-03-22 08:08 | Emergency (ER) | payer MEDICAID ==
[~2021-03-22] VITALS: Ht 157 cm; Wt 73.0 kg
[~2021-03-22 08:08] MED LIST changes: +FAMO-119 PO; +PRD20T PO
[2021-03-22 08:11] VITALS: BP 141/77
--- NOTE | 2021-03-22 08:27 | ED General ---
General Chief Complaint: General Problems/Pain Stated Complaint: HEADACHE | WEAKNESS History of Present Illness Date Seen by Provider: Mar 22, 2021 Time Seen by Provider: 08:26 Initial Comments 45-year-old female presents with a headache. Patient reports that she has had a headache since yesterday when she had an anaphylactic/allergic reaction to Bactrim. Patient was given epinephrine, Benadryl, Pepcid, 2 L IV fluids and and steroid IV in the ER yesterday. Patient was sent home with a steroid IV. She is not having any further rash or reaction. She is not having any shortness of breath, wheezing, nausea vomiting or diarrhea. Patient states she just feels like she is kind of "has a buzz" and describes what may be a tingling or heaviness in her bilateral arms. Patient reports that headaches behind her temples on both sides. Allergies and Home Medications Allergies Coded Allergies: fentanyl (Verified Allergy, Unknown, 03/22/21) sulfamethoxazole (Verified Allergy, Unknown, 03/22/21) trimethoprim (Verified Allergy, Unknown, 03/22/21) morphine (Unverified Adverse Reaction, Unknown, 10/12/19) Home Medications Buspirone HCl 10 Mg Tablet, 10 MG PO BID, (Reported) Famotidine 20 Mg Tablet, 20 MG PO BID Prescribed by: BREANN QUIROGA on 03/21/21 142 Lorazepam 1 Mg Tablet, 1 MG PO BID, (Reported) Ondansetron 4 Mg Tab.rapdis, 4 MG PO Q6H PRN for NAUSEA/VOMITING-1ST LINE Prescribed by: LEO RIOS on 01/04/201740 Potassium Chloride 20 Meq Tablet.er, 20 MEQ PO DAILY Prescribed by: LEO RIOS on 01/04/201740 Prednisone 20 Mg Tab, 40 MG PO DAILY Prescribed by: BREANN QUIROGA on 03/21/21 1427 Ranitidine HCl 300 Mg Tablet, 300 MG PO DAILY, (Reported) Tramadol HCl 50 Mg Tablet, 50 MG PO Q6H PRN for PAIN Prescribed by: HARRIET VALENCIA on 03/03/21 0321 Vortioxetine Hydrobromide 10 Mg Tablet, 15 MG PO DAILY, (Reported) Zolpidem Tartrate 10 Mg Tablet, 10 MG PO HS, (Reported) Patient Home Medication List Home Medication List Reviewed: Yes Review of Systems Review of Systems Constitutional: see HPI EENTM: No blurred vision, No hoarseness, No throat swelling Respiratory: No cough, No short of breath Cardiovascular: No chest pain, No palpitations Gastrointestinal: No diarrhea, No nausea, No vomiting Genitourinary: no symptoms reported Musculoskeletal: see HPI Skin: no symptoms reported Psychiatric/Neurological: See HPI, Headache Past Qnmrybm-Padtjw-Rzrzrj Hx Past Med/Social Hx: Reviewed Nursing Past Med/Soc Hx Patient Social History Type Used: Cigarettes 2nd Hand Smoke Exposure: No Recent Hopitalizations: No Seasonal Allergies Seasonal Allergies: No Past Medical History Surgeries: Yes (BREAST REDUCTION, LUMP REMOVED (SCAR TISSUE) FROM BREAST, Gastric sleeve) Appendectomy, Gallbladder, Hysterectomy, Lumpectomy, Orthopedic Respiratory: No Cardiac: No Neurological: Yes Reproductive Disorders: No Female Reproductive Disorders: 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 2.0oz. 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 She has no findings on physical exam. Patient was offered labs, EKG and extended work-up. However after discussing that likely some lingering effects from her reaction along with "buzz feeling" likely being caused by her steroid use. Patient felt that this time she would prefer that we just try to treat her headache. She would continue to take Benadryl, with her last one being earlier this morning. Patient has no signs of continuing anaphylactic reaction at this time After patient receiving a shot went to visit with her. Patient states that she has a history of headaches and migraines. That this is similar to some that she has had in the past. Discussed with her that is likely a migraine based on the change in weather and what she had yesterday. That she received a Toradol shot we will give her the day off to go home and rest and she is discharged home.. Departure Impression Primary Impression: Migraine headache Qualified Codes: G43.909 - Migraine, unspecified, not intractable, without status migrainosus Disposition: 01 HOME, SELF-CARE Condition: Stable Departure-Patient Inst. Referrals: LIBBY BROWN MD (PCP/Family) Primary Care Physician Patient Instructions: Migraines (DC) Work/School Note: Work Release Form Date Seen in the Emergency Department: Mar 22, 2021 Return to Work: Mar 23, 2021 Restrictions: No Restrictions YENIFER LICONA DO Mar 22, 2021 08:27
[2021-03-22] MEDS ORDERED: KETOROLAC 30 MG/ML VIAL IM STA (08:32)
== END 2021-03-22 09:03 | disposition home or self-care (01) ==
LOC: EDUNIT# 08:08 → ER FS 08:11
DX: G43.909 Migraine, unspecified, not intractable, without status migrainosus (principal); K21.9 Gastro-esophageal reflux disease without esophagitis; F41.9 Anxiety disorder, unspecified; F32.9 Major depressive disorder, single episode, unspecified; Z88.2 Allergy status to sulfonamides; Z88.5 Allergy status to narcotic agent; Z88.1 Allergy status to other antibiotic agents; Z88.8 Allergy status to other drugs, medicaments and biological substances; Z79.899 Other long term (current) drug therapy; Z79.52 Long term (current) use of systemic steroids
CPT/HCPCS: 99284

== ENCOUNTER → 2021-03-25 | Outpatient (CLI) | payer MEDICAID ==
--- NOTE | 2021-03-25 16:56 | Diagnostic Imaging Report ---
INDICATION: Premenopausal, history of fracture. COMPARISON: None. FINDINGS: AP Spine L1-L4: [BMD (g/cm2): 1.061] [T-Score: -1.2] [Z-Score: -1.3] LT Hip Neck: [BMD (g/cm2): 0.748] [T-Score: -2.1] [Z-Score: -1.6] LT Hip Total: [BMD (g/cm2):0.731] [T-Score:-2.2] [Z-Score: -2.1] RT Hip Neck: [BMD (g/cm2):0.827] [T-Score:-1.5] [Z-Score:-1.1] RT Hip Total: [BMD (g/cm2):0.776] [T-score:-1.8] [Z-Score:-1.7] *Indicates significant change from prior examination based on 95% confidence level. World Health Organization criteria for BMD interpretation classify patients as Normal (T-score at or above -1.0), Osteopenic (T-score between -1.0 and -2.5) or Osteoporotic (T-score at or below -2.5). LIMITATIONS AND MODIFICATION: None. FRACTURE RISK (FRAX SCORE): The ten year probability of (%): Major Osteoporotic Fracture: [7.9] Hip Fracture: [1.5] IMPRESSION: 1. The bone mineral density is below the expected range for the patient's age. 2. Baseline examination. 3. See below National Osteoporosis Foundation guidelines on when to potentially initiate pharmacologic therapy. Based on the National Osteoporosis Foundation Guidelines, pharmacologic treatment should be initiated in any of the following, unless clinical conditions suggest otherwise: * Any patient with prior fragility fracture of the hip or vertebrae. A spine fracture indicates 5X risk for subsequent spine fracture and 2X risk for subsequent hip fracture. * Osteoporosis (T-score <-2.5). * Postmenopausal women and men age 50 and older with low bone mass/osteopenia (T-score between -1.0 and -2.5) by DXA and 10-year major osteoporotic fracture greater than 20% or a 10-year probability of hip fracture greater than 3%. These fracture risks are supplied above in the FRAX score, if applicable. * Clinician judgement and/or patient preferences may indicate treatment for people with 10-year fracture probabilities above or below these levels. Dictated by: Dictated on workstation # [id number]
== END ==
LOC: RAD 14:30
PROVIDERS: ATTEND Nurse Practitioner Family
DX: Z87.81 Personal history of (healed) traumatic fracture (principal); Z78.0 Asymptomatic menopausal state; Z82.62 Family history of osteoporosis
CPT/HCPCS: 77080

== ENCOUNTER → 2021-04-03 | Outpatient (CLI) | payer MEDICAID ==
--- NOTE | 2021-04-03 12:14 | Diagnostic Imaging Report ---
INDICATION: Follow-up fracture. COMPARISON: 03/21/2021 FINDINGS: 3 radiographic views of the left 2nd digit were obtained and demonstrate interval development of sclerosis and partially bridging callus formation about the previously described fracture of the middle phalanx. Fracture line remains conspicuous. Fracture fragments are in stable alignment. No new acute fracture or dislocation of the left 2nd digit is seen. No unexpected radiopaque foreign bodies are identified. IMPRESSION: 1. Redemonstration partially healed fracture of the left 2nd middle phalanx. Dictated by: Dictated on workstation # [id number]
== END ==
LOC: RAD FS 10:41
PROVIDERS: ATTEND Family Medicine
DX: S62.651D Nondisplaced fracture of middle phalanx of left index finger, subsequent encounter for fracture with routine healing (principal)
CPT/HCPCS: 73140

== ENCOUNTER 2021-06-26 19:41 | Emergency (ER) | payer MEDICAID ==
[~2021-06-26] VITALS: Ht 160 cm; Wt 75.7 kg
[2021-06-26 19:50] VITALS: BP 124/76
--- NOTE | 2021-06-26 19:55 | ED Headache ---
General Chief Complaint: Head/Cervical Problems Stated Complaint: MIGRAINE Nursing Triage Note: PT AMBULATE TO ROOM FS02 WITH C/O MIGRAINE X5 DAYS. PT REPORTS SHE HAS NOT SEEN HER PCP FOR THIS C/O. PT REPORTS TAKING IBUPROFEN AND EXCEDRIN WITHOUT RELIEF. Source: patient History of Present Illness Date Seen by Provider: Jun 26, 2021 Time Seen by Provider: 19:54 Initial Comments 48-year-old female presents with migraine headache for the past 5 days. Patient has had headache symptoms daily with associated light sensitivity and throbbing around both eyes. Similar symptoms in the past with long-term history of headaches. She has tried various [id number] remedies which normally works for her, but not this time. She has not seen her PCP recently regarding headaches. Mild nausea without vomiting. No increase severity or change in the pattern of her headache. Allergies and Home Medications Allergies Coded Allergies: fentanyl (Verified Allergy, Unknown, 03/22/21) sulfamethoxazole (Verified Allergy, Unknown, 03/22/21) trimethoprim (Verified Allergy, Unknown, 03/22/21) morphine (Unverified Adverse Reaction, Unknown, 10/12/19) Home Medications Buspirone HCl 10 Mg Tablet, 10 MG PO BID, (Reported) Famotidine 20 Mg Tablet, 20 MG PO BID Prescribed by: BREANN QUIROGA on 03/21/21 142 Lorazepam 1 Mg Tablet, 1 MG PO BID, (Reported) Ondansetron 4 Mg Tab.rapdis, 4 MG PO Q6H PRN for NAUSEA/VOMITING-1ST LINE Prescribed by: LEO RIOS on 01/04/20 174 Potassium Chloride 20 Meq Tablet.er, 20 MEQ PO DAILY Prescribed by: LEO RIOS on 01/04/20 174 Prednisone 20 Mg Tab, 40 MG PO DAILY Prescribed by: BREANN QUIROGA on 03/21/21 1427 Ranitidine HCl 300 Mg Tablet, 300 MG PO DAILY, (Reported) Tramadol HCl 50 Mg Tablet, 50 MG PO Q6H PRN for PAIN Prescribed by: HARRIET VALENCIA on 03/03/21 0321 Vortioxetine Hydrobromide 10 Mg Tablet, 15 MG PO DAILY, (Reported) Zolpidem Tartrate 10 Mg Tablet, 10 MG PO HS, (Reported) Patient Home Medication List Home Medication List Reviewed: Yes Review of Systems Review of Systems Constitutional: No chills, No fever; malaise; No weakness Eyes: Denies Blindness, Denies Blurred Vision, Denies Pain; Photophobia Ears, Nose, Mouth, Throat: no symptoms reported Respiratory: no symptoms reported Gastrointestinal: nausea; No vomiting Musculoskeletal: No back pain; muscle pain, muscle stiffness, neck pain Past Bzboanq-Ziklfv-Fokjpc Hx Patient Social History Tobacco Use?: No Seasonal Allergies Seasonal Allergies: No Past Medical History Surgeries: Yes (BREAST REDUCTION, LUMP REMOVED (SCAR TISSUE) FROM BREAST, Gastric sleeve) Appendectomy, Gallbladder, Hysterectomy, Lumpectomy, Orthopedic Respiratory: No Cardiac: No Neurological: Yes Reproductive Disorders: No 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 2.0oz. 114.043645tg; 29.00 BMI Method:Stated General Appearance: WD/WN, no apparent distress HEENT: PERRL/EOMI, normal ENT inspection, photophobia Neck: non-tender, supple Cardiovascular: regular rate, rhythm, no JVD Respiratory: chest non-tender, lungs clear, normal breath sounds Psychiatric: alert, oriented x 3 Crainal Nerves: normal hearing, normal speech, PERRL Coordination/Gait: normal finger to nose, normal gait Motor/Sensory: no motor deficit, no sensory deficit Progress/Results/Core Measures Results/Orders My Orders Orders - ROVENSTBREANN BLANTON DO Ketorolac Injection (Toradol Injection) (06/26/21 20:00) Prochlorperazine Injection (Compazine In (06/26/21 20:00) Vital Signs/I&O 06/26/21 19:50 Temp 36.6 Pulse 64 Resp 18 B/P (MAP) 124/76 (92) O2 Delivery Room Air Blood Pressure Mean: 92 Departure Impression Primary Impression: Migraine Qualified Codes: G43.909 - Migraine, unspecified, not intractable, without status migrainosus Disposition: HOME, SELF-CARE Condition: Stable Departure-Patient Inst. Decision time for Depature: 20:04 Referrals: LIBBY BROWN MD (PCP/Family) Primary Care Physician Patient Instructions: Headache, Adult (DC) Add. Discharge Instructions: Follow up with Dr Brown in 2 to 3 days if not improving All discharge instructions reviewed with patient and/or family. Voiced understanding. Scripts Metoclopramide HCl (Reglan) 10 Mg Tablet 10 MG PO DAILY PRN for Migraine, #10 TAB Prov: BREANN QUIROGA DO 06/26/21 Ibuprofen (Ibuprofen) 800 Mg Tablet 800 MG PO Q8H PRN for PAIN, #30 TAB 0 Refills Prov: BREANN QUIROGA DO 06/26/21 BREANN QUIROGA DO Jun 26, 2021 19:55
[2021-06-26] MEDS ORDERED: KETOROLAC 60 MG/2 ML VIAL IM ONE (20:00)
[2021-06-26] MEDS ORDERED: PROCHLORPERAZINE 10 MG/2ML INJ (COMPAZINE) IM ONE (20:00)
[2021-06-26] MEDS ORDERED: METO-310 PO (20:06)
[2021-06-26] MEDS ORDERED: IBUP-1780 PO (20:06)
== END 2021-06-26 20:19 | disposition home or self-care (01) ==
LOC: EDUNIT# 19:41 → ER FS 19:42
DX: G43.909 Migraine, unspecified, not intractable, without status migrainosus (principal); K21.9 Gastro-esophageal reflux disease without esophagitis; F41.9 Anxiety disorder, unspecified; F32.9 Major depressive disorder, single episode, unspecified; Z79.899 Other long term (current) drug therapy; Z79.52 Long term (current) use of systemic steroids
CPT/HCPCS: 99284

== ENCOUNTER 2021-12-19 14:55 | Emergency (ER) | payer MEDICAID ==
[~2021-12-19] VITALS: Ht 160 cm; Wt 83.0 kg
[~2021-12-19 14:55] MED LIST changes: +IBUP-1780 PO; +METO-310 PO
[2021-12-19 15:06] VITALS: BP_SYST 111; BP_SYST 120; BP_SYST 124; BP_DIAS 71; BP_DIAS 79; BP_DIAS 83
[2021-12-19 15:26] LABS: BASOPHILS % (AUTO) 0 % (0-10); EOSINOPHILS # (AUTO) 0.1 10^3/uL (0.0-0.3); EOSINOPHILS % (AUTO) 1 % (0-10); HEMATOCRIT 41 % (35-52); HEMOGLOBIN 13.6 g/dL (11.5-16.0); LYMPHOCYTES # (AUTO) 1.7 X 10^3 (1.0-4.0); LYMPHOCYTES % (AUTO) 20 % (12-44); MEAN CORPUSCULAR HEMOGLOBIN 31 pg (25-34); MEAN CORPUSCULAR HGB CONC 33 g/dL (32-36); MEAN CORPUSCULAR VOLUME 93 fL (80-99); MEAN PLATELET VOLUME 9.9 fL (9.0-12.2); MONOCYTES # (AUTO) 0.7 X 10^3 (0.0-1.0); MONOCYTES % (AUTO) 9 % (0-12); NEUTROPHILS # (AUTO) 5.8 X 10^3 (1.8-7.8); NEUTROPHILS % (AUTO) 70 % (42-75); PLATELET COUNT 317 10^3/uL (130-400); WHITE BLOOD COUNT 8.3 10^3/uL (4.3-11.0)
--- NOTE | 2021-12-19 15:26 | ED General ---
General Chief Complaint: General Problems/Pain Stated Complaint: LOW BP Nursing Triage Note: PT REPORTS SHE HAS SOME DIZZINESS WHEN SITTING OR STADING THAT STARTED ABOUT 10PM YESTERDAY. PT HAS HAD DIARRHEA. Source of Information: Patient History of Present Illness Date Seen by Provider: Dec 19, 2021 Time Seen by Provider: 14:59 Initial Comments 46-year-old female presenting with complaints of feeling dizzy and lightheaded especially when she stands up. She has had some diarrhea in the last few days. She also has been feeling little short of breath and having a cough. She does have a history of a gastric bypass. She denies having any burning or pain with urination. She felt like her urine was pretty normal and clear. She did try going to the clinic with Dr. Brown and saw our nurse practitioner Mariah Mackenzie. At the clinic she was orthostatic and her blood pressure had dropped to 70s systolic pressure with standing so she was sent to the ED for IVF and asha luation. She has recently been around several family members that are positive for COVID. She was tested for COVID a few days after the family members found out they were positive. Her previous COVID test was negative. However this was prior to her starting to have symptoms here in the last 2 or 3 days. She denies having fever but has had chills. She denies having any chest pain, headache, sore throat, abdominal pain Timing/Duration: 2-3 Days Severity: Moderate Associated Systoms: No Chest Pain; Cough; No Diaphoresis; Fever/Chills (no fever but had some chills); No Headaches, No Loss of Appetite; Malaise; No Nausea/Vomiting, No Rash, No Seizure; Shortness of Air (with her cough she has b een a little short of breath in last few days); No Syncope; Weakness (feels weak and shakey overall) Allergies and Home Medications Allergies Coded Allergies: fentanyl (Verified Allergy, Unknown, 03/22/21) sulfamethoxazole (Verified Allergy, Unknown, 03/22/21) trimethoprim (Verified Allergy, Unknown, 03/22/21) morphine (Unverified Adverse Reaction, Unknown, 10/12/19) Patient Home Medication List Home Medication List Reviewed: Yes Buspirone HCl (Buspirone HCl) 10 Mg Tablet, 10 MG PO BID, (Reported) Entered as Reported by: KI DE GUZMAN on 10/12/191215 Famotidine (Pepcid) 20 Mg Tablet, 20 MG PO BID Prescribed by: BREANN QUIROGA on 03/21/21 142 Ibuprofen (Ibuprofen) 800 Mg Tablet, 800 MG PO Q8H PRN for PAIN Prescribed by: BREANN QUIROGA on 06/26/212005 Lorazepam (Lorazepam) 1 Mg Tablet, 1 MG PO BID, (Reported) Entered as Reported by: KI DE GUZMAN on 10/12/19 121 Metoclopramide HCl (Reglan) 10 Mg Tablet, 10 MG PO DAILY PRN Prescribed by: BREANN QUIROGA on 06/26/212005 Ondansetron (Ondansetron Odt) 4 Mg Tab.rapdis, 4 MG PO Q6H PRN for NAUSEA/VOMITING-1ST LINE Prescribed by: LEO RIOS on 01/04/20 174 Potassium Chloride (Potassium Chloride) 20 Meq Tablet.er, 20 MEQ PO DAILY Prescribed by: LEO RIOS on 01/04/20 174 Prednisone (Prednisone) 20 Mg Tab, 40 MG PO DAILY Prescribed by: BREANN QUIROGA on 03/21/21 1427 Ranitidine HCl (Ranitidine HCl) 300 Mg Tablet, 300 MG PO DAILY, (Reported) Entered as Reported by: KI DE GUZMAN on 10/12/191215 Tramadol HCl (Tramadol HCl) 50 Mg Tablet, 50 MG PO Q6H PRN for PAIN Prescribed by: HARRIET VALENCIA on 03/03/21 0321 Vortioxetine Hydrobromide (Trintellix) 10 Mg Tablet, 15 MG PO DAILY, (Reported) Entered as Reported by: KI DE GUZMAN on 10/12/191215 Zolpidem Tartrate (Zolpidem Tartrate) 10 Mg Tablet, 10 MG PO HS, (Reported) Entered as Reported by: KI DE GUZMAN on 10/12/191215 Review of Systems Review of Systems Constitutional: see HPI, chills, dizziness (especially with standing); No fever EENTM: see HPI; No epistaxis, No nose congestion Respiratory: see HPI Cardiovascular: No chest pain, No palpitations Gastrointestinal: see HPI Genitourinary: No decreased output, No dysuria Musculoskeletal: no symptoms reported Skin: No rash Psychiatric/Neurological: Anxiety; Denies Headache Hematologic/Lymphatic: Denies Blood Clots Past Xzojjly-Msmnmz-Gzmpmo Hx Patient Social History Tobacco Use?: Yes Tobacco type used: Cigarettes Smoking Status: Current Everyday Smoker Use of E-Cig and/or Vaping dev: No Substance use?: No Alcohol Use?: Yes Alcohol type: Beer, Hard Liquor, Wine Alcohol Frequency: Once in a while Pt feels they are or have been: No Immunizations Up To Date Influenza Vaccine Up-to-Date: Yes; Up-to-Date First/Initial COVID19 Vaccinat: 2020 Second COVID19 Vaccination Miguel: 2020 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 Sexually Transmitted Disease: No HIV/AIDS: No Genitourinary: No Gastrointestinal: Yes Gastroesophageal Reflux, Chronic Diarrhea Musculoskeletal: No Endocrine: Yes (THYROID NODULE) HEENT: No Loss of Vision: Denies Hearing Impairment: Denies Cancer: No Psychosocial: Yes Anxiety, Depression Integumentary: No Blood Disorders: No Adverse Reaction/Blood Tranf: No (N/A) Physical Exam Vital Signs Vital Signs - First Documented 12/19/21 14:59 Temp 36.0 Pulse 67 Resp 18 B/P (MAP) 124/79 (94) Pulse Ox 99 O2 Delivery Room Air Capillary Refill : Less Than 3 Seconds Height, Weight, BMI Height: 5'3.00" Weight: 252lbs. 2.0oz. [id number]; 32.00 BMI Method:Stated General Appearance: No Apparent Distress, WD/WN, Anxious HEENT: PERRL/EOMI; No Moist Mucous Membranes (slightly dry mucous membranes) Neck: Full Range of Motion, Normal Inspection, Non Tender, Supple Respiratory: Chest Non Tender, Lungs Clear, Normal Breath Sounds, No Accessory Muscle Use, No Respiratory Distress Cardiovascular: Regular Rate, Rhythm, Normal Peripheral Pulses Gastrointestinal: Normal Bowel Sounds, No Pulsatile Mass, Non Tender, Soft Rectal: Deferred Back: No CVA Tenderness Extremity: Normal Capillary Refill, Normal Inspection, No Pedal Edema Neurologic/Psychiatric: Alert, Oriented x3, 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 specialist II-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 Norm as Tested Skin: Normal Color, Warm/Dry Progress/Results/Core Measures Suspected Sepsis SIRS Temperature: Pulse: 95 Respiratory Rate: 18 Laboratory Tests 12/19/21 15:00: White Blood Count 8.3 Blood Pressure 120 /83 Mean: 95 Laboratory Tests 12/19/21 15:00: Creatinine 0.99, INR Comment 0.9, Platelet Count 317, Total Bilirubin 0.3 Results/Orders Lab Results Laboratory Tests Test 12/19/21 15:00 12/19/21 16:16 12/19/21 16:32 Range/Units White Blood Count 8.3 4.3-11.0 10^3/uL Red Blood Count 4.40 3.80-5.11 10^6/uL Hemoglobin 13.6 11.5-16.0 g/dL Hematocrit 41 35-52 % Mean Corpuscular Volume 93 80-99 fL Mean Corpuscular Hemoglobin 31 25-34 pg Mean Corpuscular Hemoglobin Concent 33 32-36 g/dL Red Cell Distribution Width 13.5 10.0-14.5 % Platelet Count 317 130-400 10^3/uL Mean Platelet Volume 9.9 9.0-12.2 fL Immature Granulocyte % (Auto) 0 % Neutrophils (%) (Auto) 70 42-75 % Lymphocytes (%) (Auto) 20 12-44 % Monocytes (%) (Auto) 9 0-12 % Eosinophils (%) (Auto) 1 0-10 % Basophils (%) (Auto) 0 0-10 % Neutrophils # (Auto) 5.8 1.8-7.8 X 10^3 Lymphocytes # (Auto) 1.7 1.0-4.0 X 10^3 Monocytes # (Auto) 0.7 0.0-1.0 X 10^3 Eosinophils # (Auto) 0.1 0.0-0.3 10^3/uL Basophils # (Auto) 0.0 0.0-0.1 10^3/uL Immature Granulocyte # (Auto) 0.0 0.0-0.1 10^3/uL Prothrombin Time 12.5 12.2-14.7 SEC INR Comment 0.9 0.8-1.4 Activated Partial Thromboplast Time 25 24-35 SEC D-Dimer 0.32 0.00-0.49 UG/ML Sodium Level 141 135-145 MMOL/L Potassium Level 4.5 3.6-5.0 MMOL/L Chloride Level 106 98-107 MMOL/L Carbon Dioxide Level 26 21-32 MMOL/L Anion Gap 9 5-14 MMOL/L Blood Urea Nitrogen 14 7-18 MG/DL Creatinine 0.99 0.60-1.30 MG/DL Estimat Glomerular Filtration Rate 71 BUN/Creatinine Ratio 14 Glucose Level 110 H 70-105 MG/DL Calcium Level 9.3 8.5-10.1 MG/DL Corrected Calcium 9.1 8.5-10.1 MG/DL Total Bilirubin 0.3 0.1-1.0 MG/DL Aspartate Amino Transf (AST/SGOT) 13 5-34 U/L Alanine Aminotransferase (ALT/SGPT) 12 0-55 U/L Alkaline Phosphatase 81 40-136 U/L Troponin I < 0.30 <0.30 NG/ML C-Reactive Protein 0.32 <0.50 MG/DL Total Protein 7.3 6.4-8.2 GM/DL Albumin 4.3 3.2-4.5 GM/DL Urine Color YELLOW Urine Clarity CLEAR Urine pH 7.0 5-9 Urine Specific [place] 1.020 1.016-1.022 Urine Protein NEGATIVE NEGATIVE Urine Glucose (UA) NEGATIVE NEGATIVE Urine Ketones NEGATIVE NEGATIVE Urine Nitrite NEGATIVE NEGATIVE Urine Bilirubin NEGATIVE NEGATIVE Urine Urobilinogen 0.2 < = 1.0 MG/DL Urine Leukocyte Esterase NEGATIVE NEGATIVE Urine RBC (Auto) NEGATIVE NEGATIVE Urine RBC 2-5 H /HPF Urine WBC NONE /HPF Urine Squamous Epithelial Cells 5-10 /HPF Urine Crystals NONE /LPF Urine Bacteria TRACE /HPF Urine Casts PRESENT /LPF Urine Hyaline Casts 10-25 H /LPF Urine Mucus LARGE H /LPF Urine Culture Indicated NO My Orders Orders - BETH SUTTON MD Monitor-Rhythm Ecg Trace Only (12/19/21 15:18) Ed Iv/Invasive Line Start (12/19/21 15:18) Cbc With Automated Diff (12/19/21 15:18) Comprehensive Metabolic Panel (12/19/21 15:18) Crp Fs (12/19/21 15:18) Troponin I Fs (12/19/21 15:18) Protime With Inr (12/19/21 15:18) Partial Thromboplastin Time (12/19/21 15:18) Ns Iv 1000 Ml (Sodium Chloride 0.9%) (12/19/21 15:30) Fibrin Degradation Products (12/19/21 15:18) Ua Culture If Indicated (12/19/21 15:18) Orthostatic Vital Signs (Adult (12/19/21 15:18) Ns Iv 1000 Ml (Sodium Chloride 0.9%) (12/19/21 16:25) Coronavirus Sars-Cov-2 So 2019 (12/19/21 16:25) Ns Iv 1000 Ml (Sodium Chloride 0.9%) (12/19/21 16:25) Vital Signs/I&O 12/19/21 12/19/21 12/19/21 14:59 15:06 16:47 Temp 36.0 36.0 Pulse 67 66 60 66 95 Resp 18 18 B/P (MAP) 124/79 (94) 124/79 (94) 155/90 111/71 (84) 120/83 (95) Pulse Ox 99 99 O2 Delivery Room Air Room Air Capillary Refill : Less Than 3 Seconds Blood Pressure Mean: 95 Progress Note #1: Progress Note Orthostatics were checked on patient on arrival and she did not have any significant drop or change in her heart rate or blood pressure. She felt significantly dizzy and lightheaded with standing although her blood pressure again was not any lower than when she was laying down or sitting. Her heart rate did go from around 60 up to around 80 for her change from laying to standing. Will obtain lab and urine. Give IV fluids for hydration and allow her to drink oral fluids as well. Discussed option of sending a COVID swab to have the results back in a day or 2 from here. Another option would be presuming that she was positive for COVID based on her recent exposure and now having symptoms and to quarantine and isolate until she was symptom-free for more than 24 hours without having to do any medications to treat her symptoms. Or she can go through urgent care or the clinic to get a rapid test. Progress Note #2: Progress Note Blood work does not show any acute significant abnormality. Electrolytes, blood count, coags and Ddimer all look ok. Awaiting UA and pt still has fluids infusing by IV. Progress Note #3: Progress Note pt gave urine specimen and did not feel dizzy with standing. With her hx of gastric bypass will repeat Liter bolus of NS for hydration prior to discharge. If UA does not show infection she could go once the fluids finish. Advised to consider herself positive for Covid based on her exposure and having symptoms. She did agree to having a test sent now so will send that off but advised pt it is a 1-2 day turn around at least. Continue to quarantine and consider herself positive until she has results Progress Note #4: Progress Note UA with mild concentration but no infection. specific gravity 1.020. Discharge to home after 2nd bolus infused. Departure Impression Primary Impression: Orthostatic dizziness Additional Impressions: Person under investigation for COVID-19 Dehydration Disposition: HOME, SELF-CARE Condition: Improved Departure-Patient Inst. Decision time for Depature: 16:34 Referrals: LIBBY BROWN MD (PCP/Family) Primary Care Physician Patient Instructions: COVID-19 Tests, COVID-19 ED, Dehydration, Adult ED, Dizziness, Adult ED Add. Discharge Instructions: Consider yourself positive for Covid for now and quarantine until you have negative result or at least 24 hours without symptoms Continue to drink plenty of fluids and try to stay well hydrated. Follow up with clinic for continued concerns All discharge instructions reviewed with patient and/or family. Voiced understanding. BETH SUTTON MD Dec 19, 2021 15:26
[2021-12-19] MEDS ORDERED: NS IV 1000 ML 1,000 ML IV SCH (15:30)
[2021-12-19 15:38] LABS: INR 0.9 (0.8-1.4); PROTHROMBIN TIME PATIENT 12.5 SEC (12.2-14.7)
[2021-12-19 15:40] LABS: ALANINE AMINOTRANSFERASE 12 U/L (0-55); ALBUMIN 4.3 GM/DL (3.2-4.5); ALKALINE PHOSPHATASE 81 U/L (40-136); BILIRUBIN,TOTAL 0.3 MG/DL (0.1-1.0); BUN/CREATININE RATIO 14; CALCIUM 9.3 MG/DL (8.5-10.1); CARBON DIOXIDE 26 MMOL/L (21-32); CHLORIDE 106 MMOL/L (98-107); CREATININE SERUM 0.99 MG/DL (0.60-1.30); GFR ESTIMATED 71; GLUCOSE 110 MG/DL (70-105); POTASSIUM 4.5 MMOL/L (3.6-5.0); SODIUM 141 MMOL/L (135-145); TOTAL PROTEIN 7.3 GM/DL (6.4-8.2)
[2021-12-19 16:25] LABS: BACTERIA,URINE TRACE /HPF; BILIRUBIN,URINE NEGATIVE (NEGATIVE); CLARITY,URINE CLEAR; COLOR,URINE YELLOW; GLUCOSE, URINE (UA) NEGATIVE (NEGATIVE); KETONES,URINE NEGATIVE (NEGATIVE); LEUKOCYTE ESTERASE ,URINE NEGATIVE (NEGATIVE); NITRITE,URINE NEGATIVE (NEGATIVE); PROTEIN,URINE NEGATIVE (NEGATIVE)
[2021-12-19] MEDS ORDERED: NS IV 1000 ML 1,000 ML IV STA (16:25)
[2021-12-19] MEDS ORDERED: NS IV 1000 ML 1,000 ML ONE (16:25)
[2021-12-19 16:47] VITALS: BP 155/90
== END 2021-12-19 17:18 | disposition home or self-care (01) ==
LOC: EDUNIT# 14:55 → ER FS 14:56
DX: R42 Dizziness and giddiness (principal); E86.0 Dehydration; F41.9 Anxiety disorder, unspecified; K21.9 Gastro-esophageal reflux disease without esophagitis; F32.9 Major depressive disorder, single episode, unspecified; F17.210 Nicotine dependence, cigarettes, uncomplicated; Z20.822 Contact with and (suspected) exposure to COVID-19; Z79.899 Other long term (current) drug therapy
CPT/HCPCS: 36415; 80053; 81000; 84484; 85025; 85379; 85610; 85730; 86141; 87635

== ENCOUNTER 2022-03-15 11:30 | Emergency (ER) | payer MEDICAID ==
[~2022-03-15] VITALS: Ht 160 cm; Wt 79.0 kg
[2022-03-15] MEDS: NS IV 1000 ML 1,000 ML IV SCH ×2 (11:52→12:14)
[2022-03-15 12:03] LABS: BASOPHILS # (AUTO) 0.1 10^3/uL (0.0-0.1); BASOPHILS % (AUTO) 1 % (0-10); EOSINOPHILS # (AUTO) 0.2 10^3/uL (0.0-0.3); EOSINOPHILS % (AUTO) 2 % (0-10); HEMATOCRIT 43 % (35-52); HEMOGLOBIN 14.7 g/dL (11.5-16.0); LYMPHOCYTES # (AUTO) 1.9 10^3/uL (1.0-4.0); LYMPHOCYTES % (AUTO) 23 % (12-44); MEAN CORPUSCULAR HEMOGLOBIN 31 pg (25-34); MEAN CORPUSCULAR HGB CONC 34 g/dL (32-36); MEAN CORPUSCULAR VOLUME 91 fL (80-99); MONOCYTES # (AUTO) 0.7 10^3/uL (0.0-1.0); MONOCYTES % (AUTO) 9 % (0-12); NEUTROPHILS # (AUTO) 5.4 10^3/uL (1.8-7.8); NEUTROPHILS % (AUTO) 65 % (42-75); PLATELET COUNT 383 10^3/uL (130-400); WHITE BLOOD COUNT 8.3 10^3/uL (4.3-11.0)
[2022-03-15 12:22] LABS: ALBUMIN 4.2 GM/DL (3.2-4.5); BILIRUBIN,TOTAL 0.4 MG/DL (0.1-1.0); CALCIUM 8.9 MG/DL (8.5-10.1); CREATININE SERUM 0.99 MG/DL (0.60-1.30); POTASSIUM 4.6 MMOL/L (3.6-5.0); TOTAL PROTEIN 7.3 GM/DL (6.4-8.2)
[2022-03-15 12:55] LABS: BILIRUBIN,URINE NEGATIVE (NEGATIVE); CLARITY,URINE CLEAR; COLOR,URINE YELLOW; GLUCOSE, URINE (UA) NEGATIVE (NEGATIVE); KETONES,URINE NEGATIVE (NEGATIVE); LEUKOCYTE ESTERASE ,URINE TRACE (NEGATIVE); NITRITE,URINE NEGATIVE (NEGATIVE); PROTEIN,URINE NEGATIVE (NEGATIVE)
[2022-03-15 13:01] LABS: BACTERIA,URINE FEW /HPF
--- NOTE | 2022-03-15 13:03 | ED General ---
General Chief Complaint: Abdominal/GI Problems Stated Complaint: DIARRHEA, SYNCOPAL EPISODE Nursing Triage Note: Patient has presented to ER with cc of diarrhea for the last 3 days. She reports that she passed out 3 times yesterday. She has been trying to drink fluids and taking immodium for the diarrhea. Source of Information: Patient Exam Limitations: No Limitations History of Present Illness Date Seen by Provider: Mar 15, 2022 Time Seen by Provider: 11:00 Initial Comments Patient is a 46-year-old female who presents with dizziness upon standing for the past 3 days. Patient had 3 days of diarrhea with last episode yesterday. She reports continued dizziness and weakness upon standing. No history of hypertension. Or cardiac disease. Denies nausea or vomiting. No abdominal pain or other symptoms at this time. History of gastric bypass. Timing/Duration: 1-3 Hours Severity: Mild Modifying Factors: improves with Other Associated Systoms: Other Allergies and Home Medications Allergies Coded Allergies: fentanyl (Verified Allergy, Unknown, 03/22/21) sulfamethoxazole (Verified Allergy, Unknown, 03/22/21) trimethoprim (Verified Allergy, Unknown, 03/22/21) morphine (Unverified Adverse Reaction, Unknown, 10/12/19) Patient Home Medication List Home Medication List Reviewed: Yes Buspirone HCl (Buspirone HCl) 10 Mg Tablet, 10 MG PO BID, (Reported) Entered as Reported by: KI DE GUZMAN on 10/12/19 1216 Famotidine (Pepcid) 20 Mg Tablet, 20 MG PO BID Prescribed by: BREANN QUIROGA on 03/21/21 1427 Ibuprofen (Ibuprofen) 800 Mg Tablet, 800 MG PO Q8H PRN for PAIN Prescribed by: BREANN QUIROGA on 06/26/212005 Lorazepam (Lorazepam) 1 Mg Tablet, 1 MG PO BID, (Reported) Entered as Reported by: KI DE GUZMAN on 10/12/19 1216 Metoclopramide HCl (Reglan) 10 Mg Tablet, 10 MG PO DAILY PRN Prescribed by: BREANN QUIROGA on 06/26/212005 Ondansetron (Ondansetron Odt) 4 Mg Tab.rapdis, 4 MG PO Q6H PRN for NAUSEA/VOMITING-1ST LINE Prescribed by: LEO RIOS on 01/04/20 1741 Potassium Chloride (Potassium Chloride) 20 Meq Tablet.er, 20 MEQ PO DAILY Prescribed by: LEO RIOS on 01/04/20 1741 Prednisone (Prednisone) 20 Mg Tab, 40 MG PO DAILY Prescribed by: BREANN QUIROGA on 03/21/21 1427 Ranitidine HCl (Ranitidine HCl) 300 Mg Tablet, 300 MG PO DAILY, (Reported) Entered as Reported by: KI DE GUZMAN on 10/12/19 1216 Tramadol HCl (Tramadol HCl) 50 Mg Tablet, 50 MG PO Q6H PRN for PAIN Prescribed by: HARRIET VALENCIA on 03/03/21 0321 Vortioxetine Hydrobromide (Trintellix) 10 Mg Tablet, 15 MG PO DAILY, (Reported) Entered as Reported by: KI DE GUZMAN on 10/12/19 1216 Zolpidem Tartrate (Zolpidem Tartrate) 10 Mg Tablet, 10 MG PO HS, (Reported) Entered as Reported by: KI DE GUZMAN on 10/12/19 1216 Review of Systems Review of Systems Constitutional: see HPI EENTM: see HPI Respiratory: see HPI Cardiovascular: see HPI Gastrointestinal: see HPI Genitourinary: see HPI Musculoskeletal: see HPI Skin: see HPI Psychiatric/Neurological: See HPI Hematologic/Lymphatic: See HPI Immunological/Allergic: see HPI All Other Systems Reviewed Negative Unless Noted: Yes Past Ardcipe-Mskrrt-Wupyiz Hx Patient Social History Tobacco Use?: Yes Tobacco type used: Cigarettes Smoking Status: Current Everyday Smoker Use of E-Cig and/or Vaping dev: No Substance use?: No Alcohol Use?: Yes Alcohol Frequency: Once in a while Pt feels they are or have been: Unable to obtain Immunizations Up To Date First/Initial COVID19 Vaccinat: 2020 Second COVID19 Vaccination Miguel: 2020 Seasonal Allergies Seasonal Allergies: No Past Medical History Surgery/Hospitalization HX: GASTRIC BYPASS. 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 2.0oz. 114.678386au; 30.00 BMI Method:Stated General Appearance: No Apparent Distress, WD/WN Eyes: Bilateral Eye Normal Inspection, Bilateral Eye PERRL, Bilateral Eye EOMI HEENT: PERRL/EOMI, Pharynx Normal, Moist Mucous Membranes Neck: Full Range of Motion, Normal Inspection Respiratory: Chest Non Tender, Lungs Clear Cardiovascular: Regular Rate, Rhythm, No Edema Gastrointestinal: Non Tender, Soft Neurologic/Psychiatric: Alert, Oriented x3, Normal Mood/Affect Focused Exam Sepsis Stage: Ruled Out Progress/Results/Core Measures Suspected Sepsis SIRS Temperature: Pulse: 70 Respiratory Rate: 16 Laboratory Tests 03/15/22 11:50: White Blood Count 8.3 Blood Pressure 101 /56 Mean: 71 Laboratory Tests 03/15/22 11:50: Creatinine 0.99, Platelet Count 383, Total Bilirubin 0.4 Results/Orders Lab Results Laboratory Tests Test 03/15/22 11:50 Range/Units White Blood Count 8.3 4.3-11.0 10^3/uL Red Blood Count 4.77 3.80-5.11 10^6/uL Hemoglobin 14.7 11.5-16.0 g/dL Hematocrit 43 35-52 % Mean Corpuscular Volume 91 80-99 fL Mean Corpuscular Hemoglobin 31 25-34 pg Mean Corpuscular Hemoglobin Concent 34 32-36 g/dL Red Cell Distribution Width 13.4 10.0-14.5 % Platelet Count 383 130-400 10^3/uL Mean Platelet Volume 10.0 9.0-12.2 fL Immature Granulocyte % (Auto) 1 % Neutrophils (%) (Auto) 65 42-75 % Lymphocytes (%) (Auto) 23 12-44 % Monocytes (%) (Auto) 9 0-12 % Eosinophils (%) (Auto) 2 0-10 % Basophils (%) (Auto) 1 0-10 % Neutrophils # (Auto) 5.4 1.8-7.8 10^3/uL Lymphocytes # (Auto) 1.9 1.0-4.0 10^3/uL Monocytes # (Auto) 0.7 0.0-1.0 10^3/uL Eosinophils # (Auto) 0.2 0.0-0.3 10^3/uL Basophils # (Auto) 0.1 0.0-0.1 10^3/uL Immature Granulocyte # (Auto) 0.0 0.0-0.1 10^3/uL Sodium Level 137 135-145 MMOL/L Potassium Level 4.6 3.6-5.0 MMOL/L Chloride Level 102 98-107 MMOL/L Carbon Dioxide Level 24 21-32 MMOL/L Anion Gap 11 5-14 MMOL/L Blood Urea Nitrogen 13 7-18 MG/DL Creatinine 0.99 0.60-1.30 MG/DL Estimat Glomerular Filtration Rate 71 BUN/Creatinine Ratio 13 Glucose Level 109 H 70-105 MG/DL Calcium Level 8.9 8.5-10.1 MG/DL Corrected Calcium 8.7 8.5-10.1 MG/DL Total Bilirubin 0.4 0.1-1.0 MG/DL Aspartate Amino Transf (AST/SGOT) 15 5-34 U/L Alanine Aminotransferase (ALT/SGPT) 10 0-55 U/L Alkaline Phosphatase 76 40-136 U/L Total Protein 7.3 6.4-8.2 GM/DL Albumin 4.2 3.2-4.5 GM/DL My Orders Orders - HARRIET VALENCIA DO Cbc With Automated Diff (03/15/22 11:40) Comprehensive Metabolic Panel (03/15/22 11:40) Ua Culture If Indicated (03/15/22 11:40) Ns Iv 1000 Ml (Sodium Chloride 0.9%) (03/15/22 11:45) Vital Signs/I&O 03/15/22 12:05 Temp 36.0 Pulse 70 Resp 16 B/P (MAP) 101/56 (71) Pulse Ox 98 Capillary Refill : Blood Pressure Mean: 71 Departure Communication (Admissions) Patient with orthostatic dizziness. Symptoms improved with IV fluids. Lab work otherwise reassuring. Recommend watchful waiting with PCP follow-up as needed. Return precautions reviewed. Patient verbalizes understanding and agreement discharge instructions prior to departure. Impression Primary Impression: Orthostatic dizziness Disposition: 01 HOME, SELF-CARE Condition: Stable Departure-Patient Inst. Decision time for Depature: 13:02 Referrals: LIBBY BROWN MD (PCP) Primary Care Physician Patient Instructions: Dizziness, Nonvertigo, (DC) Add. Discharge Instructions: You were evaluated in the emergency department for dizziness upon standing. Vital signs are consistent with orthostatic low blood pressure due to dehydratio n. Please increase fluids continue home occasions. Follow-up with your PCP in 2 to 3 days for reevaluation if symptoms persist. Return to the ED if new or worsening symptoms. All discharge instructions reviewed with patient and/or family. Voiced unders tanding. HARRIET VALENCIA DO Mar 15, 2022 13:03
[2022-03-15] MEDS ORDERED: NITROFURANTOIN 100 MG (MACROBID) CAPSULE PO ONE (13:15)
[2022-03-15] MEDS ORDERED: NITR-65 PO (13:16)
[2022-03-15 13:35] VITALS: BP 100/58
== END 2022-03-15 13:20 | disposition home or self-care (01) ==
LOC: EDUNIT# 11:30 → ER FS 11:32
DX: R42 Dizziness and giddiness (principal); F17.210 Nicotine dependence, cigarettes, uncomplicated
CPT/HCPCS: 36415; 80053; 81000; 85025; 87088

== ENCOUNTER → 2022-03-23 | Outpatient (CLI) | payer MEDICAID ==
[~2022-03-23] MED LIST changes: +NITR-65 PO; +OMEP20TA56 PO; -OMEP20TA7 PO
== END ==
LOC: LABNPT 15:21
PROVIDERS: ATTEND Family Medicine
DX: Z53.9 Procedure and treatment not carried out, unspecified reason (principal)

== ENCOUNTER → 2022-03-25 | Outpatient (CLI) | payer MEDICAID ==
[~2022-03-25] MED LIST changes: -OMEP20TA56 PO; +OMEP20TA7 PO
[2022-03-25 14:22] LABS: BASOPHILS % (AUTO) 1 % (0-10); EOSINOPHILS # (AUTO) 0.2 10^3/uL (0.0-0.3); EOSINOPHILS % (AUTO) 3 % (0-10); HEMATOCRIT 37 % (35-52); HEMOGLOBIN 12.1 g/dL (11.5-16.0); LYMPHOCYTES # (AUTO) 2.5 10^3/uL (1.0-4.0); LYMPHOCYTES % (AUTO) 33 % (12-44); MEAN CORPUSCULAR HEMOGLOBIN 30 pg (25-34); MEAN CORPUSCULAR HGB CONC 32 g/dL (32-36); MEAN CORPUSCULAR VOLUME 94 fL (80-99); MEAN PLATELET VOLUME 9.7 fL (9.0-12.2); MONOCYTES # (AUTO) 0.5 10^3/uL (0.0-1.0); MONOCYTES % (AUTO) 6 % (0-12); NEUTROPHILS # (AUTO) 4.3 10^3/uL (1.8-7.8); NEUTROPHILS % (AUTO) 57 % (42-75); PLATELET COUNT 351 10^3/uL (130-400); WHITE BLOOD COUNT 7.5 10^3/uL (4.3-11.0)
[2022-03-25 14:44] LABS: BILIRUBIN,TOTAL 0.2 MG/DL (0.1-1.0); CALCIUM 8.6 MG/DL (8.5-10.1); CREATININE SERUM 0.76 MG/DL (0.60-1.30); POTASSIUM 3.9 MMOL/L (3.6-5.0); TOTAL PROTEIN 6.2 GM/DL (6.4-8.2)
[2022-03-25 14:45] LABS: ALBUMIN 3.5 GM/DL (3.2-4.5)
== END ==
LOC: LAB FS 14:04
PROVIDERS: ATTEND Registered Nurse Emergency
DX: R42 Dizziness and giddiness (principal); R05.9 Cough, unspecified
CPT/HCPCS: 36415; 80053; 85025; 86141

== ENCOUNTER 2022-05-24 13:44 | Emergency (ER) | payer MEDICAID ==
[~2022-05-24 13:44] MED LIST changes: +OMEP20TA56 PO; -OMEP20TA7 PO
--- NOTE | 2022-05-24 13:59 | ED General ---
General Chief Complaint: General Problems/Pain Stated Complaint: ANXIETY Source of Information: Patient Exam Limitations: No Limitations History of Present Illness Date Seen by Provider: May 24, 2022 Time Seen by Provider: 13:45 Initial Comments 47-year-old female with her most pertinent past medical history of depression and insomnia coming in after an accidental overdose of her Vraylar 3mg. She had a new prescription with 30 pills recently. She ran out of her Ambien last week and has had difficulty sleeping. Starting on Wednesday she started taking multiple extra Vraylar to try to sleep. She is had about 15 pills in the past 72 hours roughly. She is had 4 of them today. She says she feels very anxious like she is going to come out of her skin, and she is still unable to sleep. Denies any chest pain, shortness of breath, abdominal pain, nausea, vomiting, diarrhea, fever, chills, weakness, numbness, headache, vision changes, or any other concerns Allergies and Home Medications Allergies Coded Allergies: fentanyl (Verified Allergy, Unknown, 03/22/21) sulfamethoxazole (Verified Allergy, Unknown, 03/22/21) trimethoprim (Verified Allergy, Unknown, 03/22/21) morphine (Unverified Adverse Reaction, Unknown, 10/12/19) Patient Home Medication List Home Medication List Reviewed: Yes Buspirone HCl (Buspirone HCl) 10 Mg Tablet, 10 MG PO BID, (Reported) Entered as Reported by: KI DE GUZMAN on 10/12/19 1216 Famotidine (Pepcid) 20 Mg Tablet, 20 MG PO BID Prescribed by: BREANN QUIROGA on 03/21/21 1427 Ibuprofen (Ibuprofen) 800 Mg Tablet, 800 MG PO Q8H PRN for PAIN Prescribed by: BREANN QUIROGA on 06/26/212005 Lorazepam (Lorazepam) 1 Mg Tablet, 1 MG PO BID, (Reported) Entered as Reported by: KI DE GUZMAN on 10/12/19 1216 Metoclopramide HCl (Reglan) 10 Mg Tablet, 10 MG PO DAILY PRN Prescribed by: BREANN QUIROGA on 06/26/212005 Nitrofurantoin Monohyd/M-Cryst (Macrobid 100 mg Capsule) 100 Mg Capsule, 1 TAB PO BID Prescribed by: HARRIET VALENCIA on 03/15/22 1316 Ondansetron (Ondansetron Odt) 4 Mg Tab.rapdis, 4 MG PO Q6H PRN for NAUSEA/VOMITING-1ST LINE Prescribed by: LEO RIOS on 01/04/20 174 Potassium Chloride (Potassium Chloride) 20 Meq Tablet.er, 20 MEQ PO DAILY Prescribed by: LEO RIOS on 01/04/20 174 Prednisone (Prednisone) 20 Mg Tab, 40 MG PO DAILY Prescribed by: BREANN QUIROGA on 03/21/21 1427 Ranitidine HCl (Ranitidine HCl) 300 Mg Tablet, 300 MG PO DAILY, (Reported) Entered as Reported by: KI DE GUZMAN on 10/12/19 1216 Tramadol HCl (Tramadol HCl) 50 Mg Tablet, 50 MG PO Q6H PRN for PAIN Prescribed by: HARRIET VALENCIA on 03/03/21 0321 Vortioxetine Hydrobromide (Trintellix) 10 Mg Tablet, 15 MG PO DAILY, (Reported) Entered as Reported by: KI DE GUZMAN on 10/12/19 1216 Zolpidem Tartrate (Zolpidem Tartrate) 10 Mg Tablet, 10 MG PO HS, (Reported) Entered as Reported by: KI DE GUZMAN on 10/12/19 1216 Review of Systems Review of Systems Constitutional: No fever EENTM: No blurred vision Respiratory: No cough Cardiovascular: No chest pain Gastrointestinal: No abdominal pain Genitourinary: no symptoms reported Musculoskeletal: no symptoms reported Skin: no symptoms reported Psychiatric/Neurological: Anxiety Hematologic/Lymphatic: No Symptoms Reported Immunological/Allergic: no symptoms reported All Other Systems Reviewed Negative Unless Noted: Yes Past Sdyskoq-Aghnfa-Meogeh Hx Patient Social History Tobacco Use?: Yes Tobacco type used: Cigarettes Substance use?: No Alcohol Use?: No Immunizations Up To Date First/Initial COVID19 Vaccinat: 2020 Second COVID19 Vaccination Miguel: 2020 Seasonal Allergies Seasonal Allergies: No Past Medical History Surgery/Hospitalization HX: GASTRIC BYPASS. Surgeries: Yes (BREAST REDUCTION, LUMP REMOVED (SCAR TISSUE) FROM BREAST, Gastric sleeve) Appendectomy, Gallbladder, Hysterectomy, Lumpectomy, Orthopedic Respiratory: No Cardiac: No Neurological: Yes Reproductive Disorders: No Female Reproductive Disorders: Denies [employer] History: Hysterectomy Sexually Transmitted Disease: No HIV/AIDS: No Genitourinary: No Gastrointestinal: Yes Gastroesophageal Reflux, Chronic Diarrhea Musculoskeletal: No Endocrine: Yes (THYROID NODULE) HEENT: No Loss of Vision: Denies Hearing Impairment: Denies Cancer: No Psychosocial: Yes Anxiety, Depression Integumentary: No Blood Disorders: No Adverse Reaction/Blood Tranf: No (N/A) Physical Exam Vital Signs Vital Signs - First Documented 05/24/22 14:00 Temp 36.8 Pulse 85 Resp 19 B/P (MAP) 131/87 (102) Pulse Ox 97 O2 Delivery Room Air Capillary Refill : Height, Weight, BMI Height: 5'3.00" Weight: 252lbs. 2.0oz. [id number]; 30.00 BMI Method:Stated General Appearance: No Apparent Distress, Anxious HEENT: PERRL/EOMI, Normal ENT Inspection, Pharynx Normal Neck: Full Range of Motion, Normal Inspection, Non Tender, Supple Respiratory: Chest Non Tender, Lungs Clear, Normal Breath Sounds, No Accessory Muscle Use, No Respiratory Distress Cardiovascular: Regular Rate, Rhythm, No Edema, Normal Peripheral Pulses Gastrointestinal: Normal Bowel Sounds, Non Tender, Soft; No Distended, No Guarding Back: Normal Inspection, No CVA Tenderness Extremity: Normal Capillary Refill, Normal Inspection, Normal Range of Motion, Non Tender, No Calf Tenderness, No Pedal Edema Neurologic/Psychiatric: Alert, Oriented x3, No Motor/Sensory Deficits, Normal Mood/Affect, machine dyer II-XII Norm as Tested, Other (No rigidity, normal ehfxau-[id number], normal gait, no clonus) Skin: Normal Color, Warm/Dry Lymphatic: No Adenopathy Progress/Results/Core Measures Suspected Sepsis SIRS Temperature: Pulse: Respiratory Rate: Laboratory Tests 05/24/22 14:05: White Blood Count 4.8 Blood Pressure / Mean: Laboratory Tests 05/24/22 14:05: Creatinine 0.61, Platelet Count 290, Total Bilirubin 0.2 Results/Orders Lab Results Laboratory Tests Test 05/24/22 14:05 Range/Units White Blood Count 4.8 4.3-11.0 10^3/uL Red Blood Count 4.15 3.80-5.11 10^6/uL Hemoglobin 12.4 11.5-16.0 g/dL Hematocrit 38 35-52 % Mean Corpuscular Volume 90 80-99 fL Mean Corpuscular Hemoglobin 30 25-34 pg Mean Corpuscular Hemoglobin Concent 33 32-36 g/dL Red Cell Distribution Width 14.1 10.0-14.5 % Platelet Count 290 130-400 10^3/uL Mean Platelet Volume 9.8 9.0-12.2 fL Immature Granulocyte % (Auto) 0 % Neutrophils (%) (Auto) 66 42-75 % Lymphocytes (%) (Auto) 22 12-44 % Monocytes (%) (Auto) 10 0-12 % Eosinophils (%) (Auto) 1 0-10 % Basophils (%) (Auto) 1 0-10 % Neutrophils # (Auto) 3.2 1.8-7.8 10^3/uL Lymphocytes # (Auto) 1.1 1.0-4.0 10^3/uL Monocytes # (Auto) 0.5 0.0-1.0 10^3/uL Eosinophils # (Auto) 0.0 0.0-0.3 10^3/uL Basophils # (Auto) 0.0 0.0-0.1 10^3/uL Immature Granulocyte # (Auto) 0.0 0.0-0.1 10^3/uL Sodium Level 141 135-145 MMOL/L Potassium Level 3.1 L 3.6-5.0 MMOL/L Chloride Level 104 98-107 MMOL/L Carbon Dioxide Level 25 21-32 MMOL/L Anion Gap 12 5-14 MMOL/L Blood Urea Nitrogen 9 7-18 MG/DL Creatinine 0.61 0.60-1.30 MG/DL Estimat Glomerular Filtration Rate 111 BUN/Creatinine Ratio 15 Glucose Level 122 H 70-105 MG/DL Calcium Level 8.5 8.5-10.1 MG/DL Corrected Calcium 8.5 8.5-10.1 MG/DL Total Bilirubin 0.2 0.1-1.0 MG/DL Aspartate Amino Transf (AST/SGOT) 10 5-34 U/L Alanine Aminotransferase (ALT/SGPT) 5 0-55 U/L Alkaline Phosphatase 80 40-136 U/L Total Protein 7.0 6.4-8.2 GM/DL Albumin 4.0 3.2-4.5 GM/DL Salicylates Level 1.2 L 5.0-20.0 MG/DL Acetaminophen Level < 10 L 10-30 UG/ML Serum Alcohol < 10 <10 MG/DL My Orders Orders - CARRINGTON HELTON MD Cbc With Automated Diff (05/24/22 13:55) Comprehensive Metabolic Panel (05/24/22 13:55) Alcohol (05/24/22 13:55) Acetaminophen (05/24/22 13:55) Salicylate (05/24/22 13:55) Ekg Tracing (05/24/22 13:55) Ed Iv/Invasive Line Start (05/24/22 13:55) Monitor-Rhythm Ecg Trace Only (05/24/22 13:55) Ed Iv/Invasive Line Start (05/24/22 13:55) Lorazepam Tablet (Ativan Tablet) (05/24/22 14:28) Vital Signs/I&O 05/24/22 14:00 Temp 36.8 Pulse 85 Resp 19 B/P (MAP) 131/87 (102) Pulse Ox 97 O2 Delivery Room Air Capillary Refill : Progress Note : Progress Note 47-year-old female with above history coming in due to accidental overdose. ABCs were intact and vitals are stable on presentation. She is taking roughly 15 of these pills over the past 72 hours. I contacted poison control, and they recommended monitoring her for several hours for any nausea, vomiting, or severe mental status depression. Patient continues to be at her baseline although just mildly anxious. She never had any vital sign changes or any changes to her exam. Basic labs reassuring including reassuring aspirin level, Tylenol level, negative alcohol. I believe the patient is stable for discharge with outpatient follow-up. She was sent home with strict return precautions ECG Initial ECG Impression Date: May 24, 2022 Initial ECG Impression Time: 14:00 Initial ECG Rate: 82 Initial ECG Rhythm: Normal Sinus Comment Narrow QRS, normal axis, no significant ST changes, T wave inversions in the anterior leads, QTC 432 Departure Impression Primary Impression: Insomnia Qualified Codes: F51.01 - Primary insomnia Additional Impression: Accidental overdose Qualified Codes: T50.901A - Poisoning by unspecified drugs, medicaments and biological substances, accidental (unintentional), initial encounter Disposition: HOME, SELF-CARE Condition: Stable Departure-Patient Inst. Decision time for Depature: 16:53 Referrals: LIBBY BROWN MD (PCP) Primary Care Physician Patient Instructions: Accidental Overdose, Insomnia (DC) Add. Discharge Instructions: Hold off on taking your Vraylar until Wednesday. Only take what is prescribed. Taking too much of it can actually cause insomnia in some cases. I would take [id number] doxylamine to help you sleep tonight. I would only take 1 pill at a time as an overdose of this can be more serious. Work/School Note: Work Release Form Date Seen in the Emergency Department: May 24, 2022 Return to Work: May 25, 2022 Restrictions: No Restrictions CARRINGTON HELTON MD May 24, 2022 13:59
[2022-05-24 14:09] LABS: BASOPHILS % (AUTO) 1 % (0-10); EOSINOPHILS % (AUTO) 1 % (0-10); HEMATOCRIT 38 % (35-52); HEMOGLOBIN 12.4 g/dL (11.5-16.0); LYMPHOCYTES # (AUTO) 1.1 10^3/uL (1.0-4.0); LYMPHOCYTES % (AUTO) 22 % (12-44); MEAN CORPUSCULAR HEMOGLOBIN 30 pg (25-34); MEAN CORPUSCULAR HGB CONC 33 g/dL (32-36); MEAN CORPUSCULAR VOLUME 90 fL (80-99); MEAN PLATELET VOLUME 9.8 fL (9.0-12.2); MONOCYTES # (AUTO) 0.5 10^3/uL (0.0-1.0); MONOCYTES % (AUTO) 10 % (0-12); NEUTROPHILS # (AUTO) 3.2 10^3/uL (1.8-7.8); NEUTROPHILS % (AUTO) 66 % (42-75); PLATELET COUNT 290 10^3/uL (130-400); WHITE BLOOD COUNT 4.8 10^3/uL (4.3-11.0)
[2022-05-24] MEDS ORDERED: LORazepam 0.5 MG (ATIVAN) TABLET PO STA ×2 (14:28→16:57)
[2022-05-24 14:30] LABS: ALANINE AMINOTRANSFERASE 5 U/L (0-55); ALKALINE PHOSPHATASE 80 U/L (40-136); BILIRUBIN,TOTAL 0.2 MG/DL (0.1-1.0); BUN/CREATININE RATIO 15; CALCIUM 8.5 MG/DL (8.5-10.1); CARBON DIOXIDE 25 MMOL/L (21-32); CHLORIDE 104 MMOL/L (98-107); CREATININE SERUM 0.61 MG/DL (0.60-1.30); GFR ESTIMATED 111; GLUCOSE 122 MG/DL (70-105); POTASSIUM 3.1 MMOL/L (3.6-5.0); SALICYLATE 1.2 MG/DL (5.0-20.0); SODIUM 141 MMOL/L (135-145)
[2022-05-24 14:31] LABS: ACETAMINOPHEN < 10 UG/ML (10-30)
[2022-05-24] MEDS ORDERED: diphenhydrAMINE 25 MG TAB (BENADRYL) PO ONE (17:00)
[2022-05-24 17:07] VITALS: BP 131/81
== END 2022-05-24 17:06 | disposition home or self-care (01) ==
LOC: EDUNIT# 13:44 → ER FS 13:45
DX: T43.591A Poisoning by other antipsychotics and neuroleptics, accidental (unintentional), initial encounter (principal); G47.00 Insomnia, unspecified; F17.210 Nicotine dependence, cigarettes, uncomplicated
CPT/HCPCS: 36415; 80053; 80320; 80329; 85025; 93005; 93041

== ENCOUNTER 2023-06-29 19:24 | Emergency (ER) | payer MEDICAID ==
[~2023-06-29] VITALS: Ht 157.4 cm; Wt 73.4 kg
[~2023-06-29 19:24] MED LIST changes: +POTA-330 PO; -POTA-51 PO
[2023-06-29] MEDS ORDERED: KETOROLAC 15 MG/ML VIAL IVP STA (19:41)
[2023-06-29] MEDS ORDERED: ONDANSETRON 4 MG/2 ML (SDV) Z0FRAN IVP STA (19:41)
[2023-06-29] MEDS ORDERED: NS IV 1000 ML 1,000 ML IV STA (19:41)
[2023-06-29 19:52] LABS: BASOPHILS # (AUTO) 0.1 10^3/uL (0.0-0.1); BASOPHILS % (AUTO) 1 % (0-10); EOSINOPHILS # (AUTO) 0.3 10^3/uL (0.0-0.3); EOSINOPHILS % (AUTO) 4 % (0-10); HEMATOCRIT 33 % (35-52); HEMOGLOBIN 10.3 g/dL (11.5-16.0); LYMPHOCYTES # (AUTO) 2.8 10^3/uL (1.0-4.0); LYMPHOCYTES % (AUTO) 37 % (12-44); MEAN CORPUSCULAR HEMOGLOBIN 28 pg (25-34); MEAN CORPUSCULAR HGB CONC 31 g/dL (32-36); MEAN CORPUSCULAR VOLUME 90 fL (80-99); MEAN PLATELET VOLUME 10.3 fL (9.0-12.2); MONOCYTES # (AUTO) 0.7 10^3/uL (0.0-1.0); MONOCYTES % (AUTO) 10 % (0-12); NEUTROPHILS # (AUTO) 3.6 10^3/uL (1.8-7.8); NEUTROPHILS % (AUTO) 48 % (42-75); PLATELET COUNT 317 10^3/uL (130-400); WHITE BLOOD COUNT 7.5 10^3/uL (4.3-11.0)
[2023-06-29] MEDS ORDERED: NS 100 ML (IVPB) BAG IV ONE (20:00)
[2023-06-29] MEDS ORDERED: IOHEXOL 350 MG/ML 100 ML (OMNIPAQUE 350) VIAL IV ONE (20:00)
[2023-06-29] MEDS ORDERED: HOLD METFORMIN - RECEIVED CONTRAST 20 ML VIAL IV SCH (20:00)
--- NOTE | 2023-06-29 20:17 | ED Abdominal Pain ---
General Stated Complaint: ABD PAIN,FEVER Source of Information: Patient History of Present Illness Date Seen by Provider: Jun 29, 2023 Time Seen by Provider: 19:27 Initial Comments 48-year-old female complaining of generalized abdominal pain. She started having a fever yesterday and was seen in urgent care earlier today. They diagnosed her with a urinary tract infection. She is taken 1 dose of cephalexin for the UTI. However this evening she was still having a lot of abdominal bloating, pain, cramping with nausea. She was concerned that there was something more serious going on with her abdomen. She has had a history of gas tric bypass as well as cholecystectomy, appendectomy, hysterectomy. She has previously had diverticulitis. She denies any vaginal bleeding or spotting and has not had any diarrhea or change in her bowels. She feels like she is going to the bathroom normally for her. She has had urinary urgency. Timing/Duration: 1-2 Days Severity/Quality: Cramping, Stabbing Location: Generalized Abdomen Activities at Onset: None Modifying Factors: Worsens With Movement, Worsens With Palpation Associated Symptoms: No Back Pain, No Chest Pain, No Diaphoresis; Fever/Chills, Fatigue; No Headache, No Heartburn; Nausea/Vomiting; No Rash, No Shortness of Air, No Swelling/Mass in Abdomen, No Syncope, No Weakness Allergies and Home Medications Allergies Coded Allergies: fentanyl (Verified Allergy, Unknown, 03/22/21) sulfamethoxazole (Verified Allergy, Unknown, 03/22/21) trimethoprim (Verified Allergy, Unknown, 03/22/21) morphine (Unverified Adverse Reaction, Unknown, 10/12/19) Patient Home Medication List Home Medication List Reviewed: Yes Buspirone HCl (Buspirone HCl) 10 Mg Tablet, 10 MG PO BID, (Reported) Entered as Reported by: KI DE GUZMAN on 10/12/19 1216 Dicyclomine HCl (Dicyclomine HCl) 10 Mg Capsule, 10 MG PO QID PRN for ABDOMINAL PAIN Prescribed by: BETH SUTTON on 06/29/237 Famotidine (Pepcid) 20 Mg Tablet, 20 MG PO BID Prescribed by: BREANN QUIROGA on 03/21/21 1427 Ibuprofen (Ibuprofen) 800 Mg Tablet, 800 MG PO Q8H PRN for PAIN Prescribed by: BREANN QUIROGA on 06/26/212005 Lorazepam (Lorazepam) 1 Mg Tablet, 1 MG PO BID, (Reported) Entered as Reported by: KI DE GUZMAN on 10/12/19 1216 Metoclopramide HCl (Reglan) 10 Mg Tablet, 10 MG PO DAILY PRN Prescribed by: BREANN QUIROGA on 06/26/212005 Nitrofurantoin Monohyd/M-Cryst (Macrobid 100 mg Capsule) 100 Mg Capsule, 1 TAB PO BID Prescribed by: HARRIET VALENCIA on 03/15/22 1316 Ondansetron (Ondansetron Odt) 4 Mg Tab.rapdis, 4 MG PO Q6H PRN for NAUSEA/VOMITI NG-1ST LINE Prescribed by: LEO RIOS on 01/04/20 174 Polyethylene Glycol 3350 (Clearlax) 17 Gram/Dose Powder, 17 GM PO DAILY PRN for abdominal pain/bloating Prescribed by: BETH SUTTON on 06/29/23 2227 Potassium Chloride (Potassium Chloride) 20 Meq Tablet.er, 20 MEQ PO DAILY Prescribed by: LEO RIOS on 01/04/20 174 Prednisone (Prednisone) 20 Mg Tab, 40 MG PO DAILY Prescribed by: BREANN QUIROGA on 03/21/21 1427 Ranitidine HCl (Ranitidine HCl) 300 Mg Tablet, 300 MG PO DAILY, (Reported) Entered as Reported by: KI DE GUZMAN on 10/12/19 121 Tramadol HCl (Tramadol HCl) 50 Mg Tablet, 50 MG PO Q6H PRN for PAIN Prescribed by: HARRIET VALENCIA on 03/03/21 0321 Vortioxetine Hydrobromide (Trintellix) 10 Mg Tablet, 15 MG PO DAILY, (Reported) Entered as Reported by: KI DE GUZMAN on 10/12/19 121 Zolpidem Tartrate (Zolpidem Tartrate) 10 Mg Tablet, 10 MG PO HS, (Reported) Entered as Reported by: KI DE GUZMAN on 10/12/19 1216 Review of Systems Review of Systems Constitutional: chills, fever, malaise EENTM: No Symptoms Reported Respiratory: No Symptoms Reported Cardiovascular: No Symptoms Reported Gastrointestinal: See HPI Genitourinary: See HPI Musculoskeletal: no symptoms reported Skin: No rash Psychiatric/Neurological: No Symptoms Reported Past Iulfpwd-Tdhtwe-Bchuxh Hx Patient Social History Tobacco Use?: No Immunizations Up To Date First/Initial COVID19 Vaccinat: 2020 Second COVID19 Vaccination Miguel: 2020 Third COVID19 Vaccination Date: 2020 Seasonal Allergies Seasonal Allergies: No Past Medical History Surgery/Hospitalization HX: GASTRIC BYPASS. anxiety, cholecystectomy, appendectomy, hysterectomy, diverticulosis Surgeries: Yes (BREAST REDUCTION, LUMP REMOVED (SCAR TISSUE) FROM BREAST, Gastric sleeve) Appendectomy, Gallbladder, Hysterectomy, Lumpectomy, Orthopedic Respiratory: No Cardiac: No Neurological: Yes Reproductive Disorders: No Female Reproductive Disorders: Denies INFORMATICIST History: Hysterectomy Sexually Transmitted Disease: No HIV/AIDS: No Genitourinary: No Gastrointestinal: Yes Gastroesophageal Reflux, Chronic Diarrhea Musculoskeletal: No Endocrine: Yes (THYROID NODULE) HEENT: No Loss of Vision: Denies Hearing Impairment: Denies Cancer: No Psychosocial: Yes Anxiety, Depression Integumentary: No Blood Disorders: No Adverse Reaction/Blood Tranf: No (N/A) Physical Exam Vital Signs Vital Signs - First Documented 06/29/23 19:26 Temp 36.3 Pulse 72 Resp 16 B/P (MAP) 135/86 (102) Pulse Ox 99 O2 Delivery Room Air Capillary Refill : Height/Weight/BMI Height: 5'3.00" Weight: 252lbs. 2.0oz. 114.348992cx; 30.00 BMI Method:Stated General Appearance: WD/WN, mild distress HEENT: PERRL/EOMI, pharynx normal Neck: non-tender, full range of motion, supple, normal inspection Respiratory: chest non-tender, lungs clear, normal breath sounds, no respiratory distress, no accessory muscle use Cardiovascular: normal peripheral pulses, regular rate, rhythm Gastrointestinal: soft, no pulsatile mass, abnormal bowel sounds (Hyperactive bowel sounds); No distended, No guarding, No rebound; tenderness (Diffuse tenderness to palpation) Rectal: deferred Extremities: normal range of motion, non-tender, normal capillary refill Back: no CVA tenderness Neurologic/Psychiatric: alert, oriented x 3 Skin: normal color, warm/dry Focused Exam Lactate Level 06/29/23 19:30: Lactic Acid Level 0.86 Lactic Acid Level Laboratory Tests Test 06/29/23 19:30 Lactic Acid Level 0.86 MMOL/L (0.50-2.00) Progress/Results/Core Measures Results/Orders Lab Results Laboratory Tests Test 06/29/23 19:30 Range/Units White Blood Count 7.5 4.3-11.0 10^3/uL Red Blood Count 3.69 L 3.80-5.11 10^6/uL Hemoglobin 10.3 L 11.5-16.0 g/dL Hematocrit 33 L 35-52 % Mean Corpuscular Volume 90 80-99 fL Mean Corpuscular Hemoglobin 28 25-34 pg Mean Corpuscular Hemoglobin Concent 31 L 32-36 g/dL Red Cell Distribution Width 16.0 H 10.0-14.5 % Platelet Count 317 130-400 10^3/uL Mean Platelet Volume 10.3 9.0-12.2 fL Immature Granulocyte % (Auto) 0 % Neutrophils (%) (Auto) 48 42-75 % Lymphocytes (%) (Auto) 37 12-44 % Monocytes (%) (Auto) 10 0-12 % Eosinophils (%) (Auto) 4 0-10 % Basophils (%) (Auto) 1 0-10 % Neutrophils # (Auto) 3.6 1.8-7.8 10^3/uL Lymphocytes # (Auto) 2.8 1.0-4.0 10^3/uL Monocytes # (Auto) 0.7 0.0-1.0 10^3/uL Eosinophils # (Auto) 0.3 0.0-0.3 10^3/uL Basophils # (Auto) 0.1 0.0-0.1 10^3/uL Immature Granulocyte # (Auto) 0.0 0.0-0.1 10^3/uL Sodium Level 140 135-145 MMOL/L Potassium Level 4.1 3.6-5.0 MMOL/L Chloride Level 106 98-107 MMOL/L Carbon Dioxide Level 25 21-32 MMOL/L Anion Gap 9 5-14 MMOL/L Blood Urea Nitrogen 11 7-18 MG/DL Creatinine 0.76 0.60-1.30 MG/DL Estimat Glomerular Filtration Rate 97 BUN/Creatinine Ratio 14 Glucose Level 105 70-105 MG/DL Lactic Acid Level 0.86 0.50-2.00 MMOL/L Calcium Level 8.3 L 8.5-10.1 MG/DL Corrected Calcium 8.7 8.5-10.1 MG/DL Total Bilirubin < 0.2 0.1-1.0 MG/DL Aspartate Amino Transf (AST/SGOT) 11 5-34 U/L Alanine Aminotransferase (ALT/SGPT) 7 0-55 U/L Alkaline Phosphatase 77 40-136 U/L C-Reactive Protein < 0.30 <0.50 MG/DL Total Protein 6.3 L 6.4-8.2 GM/DL Albumin 3.5 3.2-4.5 GM/DL Lipase 62 8-78 U/L Influenza Type A (RT-PCR) Not Detected Not Detecte Influenza Type B (RT-PCR) Not Detected Not Detecte SARS-CoV-2 RNA (RT-PCR) Not Detected Not Detecte My Orders Orders - BETH SUTTON MD Cbc With Automated Diff (06/29/23 19:41) Comprehensive Metabolic Panel (06/29/23 19:41) Blood Culture (06/29/23 19:41) Ua Culture If Indicated (06/29/23 19:41) Ed Iv/Invasive Line Start (06/29/23 19:41) Crp Fs (06/29/23 19:41) Lactic Acid Analyzer (06/29/23 19:41) Covid 19 Inhouse Test (06/29/23 19:41) Ct Abdomen/Pelvis W (06/29/23 19:41) Lipase (06/29/23 19:41) Influenza A And B By Pcr (06/29/23 19:41) Ns Iv 1000 Ml (Sodium Chloride 0.9%) (06/29/23 19:41) Ondansetron Injection (Zofran Injectio (06/29/23 19:41) Ketorolac Injection (Toradol Injection) (06/29/23 19:41) Iohexol Injection (Omnipaque 350 Mg/Ml 1 (06/29/23 20:00) Received Contrast (Hold Metformin- Contr (06/29/23 20:00) Ns (Ivpb) 100 Ml (Sodium Chloride 0.9% 1 (06/29/23 20:00) Dicyclomine Injection (Dicyclomine Injec (06/29/23 21:30) Ceftriaxone Iv/Im (Ceftriaxone Iv/Im) (06/29/23 22:03) Medications Given in ED Current Medications Medications Dose Ordered Sig/Noa Route Start Time Stop Time Status Last Admin Dose Admin Dicyclomine HCl 20 mg ONCE ONCE IM 06/29/23 21:30 06/29/23 21:31 DC 06/29/23 21:28 20 MG Iohexol 100 ml ONCE ONCE IV 06/29/23 20:00 06/29/23 20:01 DC 06/29/23 20:21 80 ML Sodium Chloride 100 ml ONCE ONCE IV 06/29/23 20:00 06/29/23 20:01 DC 06/29/23 20:21 100 ML Vital Signs/I&O 06/29/23 06/29/23 19:26 22:33 Temp 36.3 Pulse 72 82 Resp 16 16 B/P (MAP) 135/86 (102) 126/82 Pulse Ox 99 99 O2 Delivery Room Air Room Air Progress Progress Note #1: Progress Note Potential diagnosis of bowel obstruction, adhesions, cystitis, pyelonephritis, diverticulitis, colitis. Obtain peripheral IV access and send labs for complete blood count, comprehensive metabolic profile, blood cultures, lactic acid, urinalysis. Ordered CT scan of the abdomen and pelvis with IV contrast to help evaluate for acute pathology in the belly. Normal saline 1 L IV fluid bolus for hydration, Toradol 15 mg IV for pain, Zofran 4 mg IV for nausea. Progress Note #2: Progress Note Her complete blood count had a normal white blood cell count of 7.5. She had a normal differential. She did have some anemia with a hemoglobin of 10.3. Catrachita l platelets of 317. Her comprehensive metabolic panel showed no acute electrolyte abnormality to account for her pain and symptoms. Lactic acid was negative at 0.86. CRP was negative at less than 0.3. Her lipase was also negative at 62. Her CT scan of the abdomen and pelvis with IV contrast had shown increased stool and gas but no bowel obstruction or mass. She has diverticulosis but no diverticulitis. I added a dose of Bentyl 20 mg IM x1 to try and help with her pain. Progress Note #3: Time: 22:05 Progress Note Reviewed results with the patient and she still was having some abdominal discomfort but felt it might be slightly better. Will administer a dose of Rocephin 1 g IV to help boost treatment for the urine infection. Advised to try taking some MiraLAX to help gas and stool move through. Take Bentyl 10 mg p.o. 4 times daily as needed abdominal pain and cramping. Push fluids and rest. Check back with clinic for continued concerns. Continue on the antibiotics for UTI. Diagnostic Imaging Diagonstic Imaging: CT Plain Films/CT/US/NM/MRI: abdomen, pelvis Comments NAME: ELODIA HERRON [facility] REC#: [id number] PT STATUS: REG ER : 1975 PHYSICIAN: BETH SUTTON MD ADMIT DATE: 06/29/23/ER FS Draft Date of Exam:06/29/23 CT ABDOMEN/PELVIS W PROCEDURE: CT abdomen and pelvis with contrast. TECHNIQUE: Multiple contiguous axial images were obtained through the abdomen and pelvis after administration of intravenous contrast. Auto Exposure Controls were utilized during the CT exam to meet ALARA standards for radiation dose reduction. All CT scans use one or more of the following dose optimizing techniques: automated exposure control, MA and/or KvP adjustment based on patient size and exam type or iterative reconstruction. INDICATION: Nausea, fever, diffuse abdominal pain COMPARISON: 01/04/2020 FINDINGS: There is dependent atelectasis in the lung bases. The heart is normal in size. The liver demonstrates no focal lesions. There is mild fatty infiltration along the falciform ligament. Cholecystectomy clips are noted. The spleen appears normal. The adrenal glands are normal. The kidneys demonstrate no enhancing lesions. There is a small cyst in the right kidney. There is no hydronephrosis. There are postsurgical changes in the stomach. The appendix has been removed. No distended loops of small bowel are seen. No free air or free fluid is seen. There is diverticulosis in the colon without diverticulitis seen. The aorta is normal in caliber. No lymphadenopathy is seen. No acute osseous abnormality is seen. IMPRESSION: 1. Postsurgical changes in the abdomen with no acute abnormality identified. 2. Colonic diverticulosis without diverticulitis. Dictated on workstation # [id number] Dict: 06/29/232024 Trans: 06/29/232029 [facility] [id number] Interpreted by: HILARIO SANDRA MD Electronically signed by: Reviewed: Reviewed by Me Departure Impression Primary Impression: Cystitis without hematuria Additional Impressions: Abdominal bloating Fever in adult Disposition: 01 HOME, SELF-CARE Condition: Stable Departure-Patient Inst. Decision time for Depature: 22:25 Referrals: LIBBY BROWN MD (PCP/Family) Primary Care Physician Patient Instructions: Abdominal Pain, Adult ED, Fever, Adult ED, Urinary Tract Infection, Adult ED Add. Discharge Instructions: Try to stay well-hydrated and drink plenty of fluids. Try using the MiraLAX to help with the gas and increased stool. You could use 17 g mixed in 8 ounces of water, juice or liquid of your choice once a day. Use the dicyclomine or Bentyl up to 4 times a day as needed to help with abdominal pain and cramping and gas pains. Take your full course of antibiotics for your urine infection. Check back with the clinic if symptoms are not improving as you are getting treatment. Scripts Polyethylene Glycol 3350 (Clearlax) 17 Gram/Dose Powder 17 GM PO DAILY PRN for abdominal pain/bloating for 30 Days, #510 GM 0 Refills Prov: BETH SUTTON MD 06/29/23 Dicyclomine HCl (Dicyclomine HCl) 10 Mg Capsule 10 MG PO QID PRN for ABDOMINAL PAIN for 5 Days, #20 CAP 0 Refills Prov: BETH SUTTON MD 06/29/23 Work/School Note: Work Release Form Date Seen in the Emergency Department: Jun 29, 2023 Return to Work: Jul 01, 2023 Restrictions: Return-No Fever (24hrs) BETH SUTTON MD Jun 29, 2023 20:17
[2023-06-29 20:18] LABS: ALANINE AMINOTRANSFERASE 7 U/L (0-55); ALBUMIN 3.5 GM/DL (3.2-4.5); ALKALINE PHOSPHATASE 77 U/L (40-136); BUN/CREATININE RATIO 14; CALCIUM 8.3 MG/DL (8.5-10.1); CARBON DIOXIDE 25 MMOL/L (21-32); CHLORIDE 106 MMOL/L (98-107); CREATININE SERUM 0.76 MG/DL (0.60-1.30); GFR ESTIMATED 97; GLUCOSE 105 MG/DL (70-105); POTASSIUM 4.1 MMOL/L (3.6-5.0); SODIUM 140 MMOL/L (135-145); TOTAL PROTEIN 6.3 GM/DL (6.4-8.2)
[2023-06-29 20:19] LABS: BILIRUBIN,TOTAL < 0.2 MG/DL (0.1-1.0); LIPASE 62 U/L (8-78)
--- NOTE | 2023-06-29 20:30 | Diagnostic Imaging Report ---
PROCEDURE: CT abdomen and pelvis with contrast. TECHNIQUE: Multiple contiguous axial images were obtained through the abdomen and pelvis after administration of intravenous contrast. Auto Exposure Controls were utilized during the CT exam to meet ALARA standards for radiation dose reduction. All CT scans use one or more of the following dose optimizing techniques: automated exposure control, MA and/or KvP adjustment based on patient size and exam type or iterative reconstruction. INDICATION: Nausea, fever, diffuse abdominal pain COMPARISON: 01/04/2020 FINDINGS: There is dependent atelectasis in the lung bases. The heart is normal in size. The liver demonstrates no focal lesions. There is mild fatty infiltration along the falciform ligament. Cholecystectomy clips are noted. The spleen appears normal. The adrenal glands are normal. The kidneys demonstrate no enhancing lesions. There is a small cyst in the right kidney. There is no hydronephrosis. There are postsurgical changes in the stomach. The appendix has been removed. No distended loops of small bowel are seen. No free air or free fluid is seen. There is diverticulosis in the colon without diverticulitis seen. The aorta is normal in caliber. No lymphadenopathy is seen. No acute osseous abnormality is seen. IMPRESSION: 1. Postsurgical changes in the abdomen with no acute abnormality identified. 2. Colonic diverticulosis without diverticulitis. Dictated by: Dictated on workstation # [id number]
[2023-06-29] MEDS ORDERED: DICYCLOMINE 10 MG/ML 2 ML AMPULE IM ONE (21:30)
[2023-06-29] MEDS ORDERED: cefTRIAXone IV/IM 1,000 MG in NS (IVPB) 50 ML 50 ML IV STA (22:03)
[2023-06-29] MEDS ORDERED: DICY10CA12 PO (22:27)
[2023-06-29] MEDS ORDERED: POLY119P2 PO (22:27)
[2023-06-29 22:33] VITALS: BP 126/82
== END 2023-06-29 22:34 | disposition home or self-care (01) ==
LOC: EDUNIT# 19:24 → ER FS 19:26
DX: N30.90 Cystitis, unspecified without hematuria (principal); R14.0 Abdominal distension (gaseous); D64.9 Anemia, unspecified; Z90.49 Acquired absence of other specified parts of digestive tract; Z90.710 Acquired absence of both cervix and uterus; Z20.822 Contact with and (suspected) exposure to COVID-19
CPT/HCPCS: 36415; 74177; 80053; 83605; 83690; 85025; 86141; 87040; 87636; 96372; 96374; 96375; Q9967

== ENCOUNTER 2023-07-30 10:24 | Emergency (ER) | payer MEDICAID ==
[~2023-07-30 10:24] MED LIST changes: +DICY10CA12 PO; +POLY119P2 PO
[2023-07-30] MEDS ORDERED: NS IV 1000 ML 1,000 ML IV STA (10:30)
--- NOTE | 2023-07-30 10:30 | ED General ---
General Stated Complaint: ORELLANA; SYNCOPAL EPISODE History of Present Illness Date Seen by Provider: Jul 30, 2023 Time Seen by Provider: 10:30 Initial Comments 48-year-old female brought in by EMS. Patient reports that she just "does not feel well" patient was at park when she felt like she "might faint" patient reports that she has had migraine for 2 days. She has chronic migraines. She has been seen at both urgent care and [facility] for this. Patient just complains of generalized malaise and no specific complaints. Allergies and Home Medications Allergies Coded Allergies: fentanyl (Verified Allergy, Unknown, 03/22/21) sulfamethoxazole (Verified Allergy, Unknown, 03/22/21) trimethoprim (Verified Allergy, Unknown, 03/22/21) morphine (Unverified Adverse Reaction, Unknown, 10/12/19) Patient Home Medication List Home Medication List Reviewed: Yes Buspirone HCl (Buspirone HCl) 10 Mg Tablet, 10 MG PO BID, (Reported) Entered as Reported by: KI DE GUZMAN on 10/12/19 1216 Dicyclomine HCl (Dicyclomine HCl) 10 Mg Capsule, 10 MG PO QID PRN for ABDOMINAL PAIN Prescribed by: BETH SUTTON on 06/29/23 2227 Famotidine (Pepcid) 20 Mg Tablet, 20 MG PO BID Prescribed by: BREANN QUIROGA on 03/21/21 1427 Ibuprofen (Ibuprofen) 800 Mg Tablet, 800 MG PO Q8H PRN for PAIN Prescribed by: BREANN QUIROGA on 06/26/212005 Lorazepam (Lorazepam) 1 Mg Tablet, 1 MG PO BID, (Reported) Entered as Reported by: KI DE GUZMAN on 10/12/19 1216 Metoclopramide HCl (Reglan) 10 Mg Tablet, 10 MG PO DAILY PRN Prescribed by: BREANN QUIROGA on 06/26/212005 Nitrofurantoin Monohyd/M-Cryst (Macrobid 100 mg Capsule) 100 Mg Capsule, 1 TAB PO BID Prescribed by: HARRIET VALENCIA on 03/15/22 1316 Ondansetron (Ondansetron Odt) 4 Mg Tab.rapdis, 4 MG PO Q6H PRN for NAUSEA/VOMITING-1ST LINE Prescribed by: LEO RIOS on 01/04/20 1741 Polyethylene Glycol 3350 (Clearlax) 17 Gram/Dose Powder, 17 GM PO DAILY PRN for abdominal pain/bloating Prescribed by: BETH SUTTON on 06/29/23 222 Potassium Chloride (Potassium Chloride) 20 Meq Tablet.er, 20 MEQ PO DAILY Prescribed by: LEO RIOS on 01/04/20 174 Prednisone (Prednisone) 20 Mg Tab, 40 MG PO DAILY Prescribed by: BREANN QUIROGA on 03/21/21 1427 Ranitidine HCl (Ranitidine HCl) 300 Mg Tablet, 300 MG PO DAILY, (Reported) Entered as Reported by: KI DE GUZMAN on 10/12/19 1216 Tramadol HCl (Tramadol HCl) 50 Mg Tablet, 50 MG PO Q6H PRN for PAIN Prescribed by: HARRIET VALENCIA on 03/03/21 0321 Vortioxetine Hydrobromide (Trintellix) 10 Mg Tablet, 15 MG PO DAILY, (Reported) Entered as Reported by: KI DE GUZMAN on 10/12/19 1216 Zolpidem Tartrate (Zolpidem Tartrate) 10 Mg Tablet, 10 MG PO HS, (Reported) Entered as Reported by: KI DE GUZMAN on 10/12/19 1216 Review of Systems Review of Systems Constitutional: see HPI EENTM: no symptoms reported Respiratory: no symptoms reported Cardiovascular: no symptoms reported Gastrointestinal: no symptoms reported Genitourinary: no symptoms reported Musculoskeletal: no symptoms reported Skin: no symptoms reported Psychiatric/Neurological: See HPI, Headache Past Ewzukex-Xwzder-Afdpll Hx Immunizations Up To Date First/Initial COVID19 Vaccinat: 2020 Second COVID19 Vaccination Miguel: 2020 Third COVID19 Vaccination Date: 2020 Seasonal Allergies Seasonal Allergies: No Past Medical History Surgery/Hospitalization HX: GASTRIC BYPASS. 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 2.0oz. 114.737531cs; 29.00 BMI Method:Stated General Appearance: No Apparent Distress, Other (Unkept) Neck: Non Tender, Supple Respiratory: Lungs Clear, Normal Breath Sounds Cardiovascular: Regular Rate, Rhythm, No Edema Gastrointestinal: Non Tender, Soft Extremity: Normal Range of Motion, Non Tender Neurologic/Psychiatric: Alert, Oriented x3, No Motor/Sensory Deficits, Normal Mood/Affect, instructor pilot II-XII Norm as Tested Progress/Results/Core Measures Suspected Sepsis SIRS Temperature: Pulse: Respiratory Rate: Laboratory Tests 07/30/23 10:34: White Blood Count 7.1 Blood Pressure / Mean: Laboratory Tests 07/30/23 10:34: Creatinine 0.71, Platelet Count 308, Total Bilirubin 0.2 Results/Orders Lab Results Laboratory Tests Test 07/30/23 10:34 07/30/23 10:38 Range/Units White Blood Count 7.1 4.3-11.0 10^3/uL Red Blood Count 3.95 3.80-5.11 10^6/uL Hemoglobin 10.9 L 11.5-16.0 g/dL Hematocrit 35 35-52 % Mean Corpuscular Volume 88 80-99 fL Mean Corpuscular Hemoglobin 28 25-34 pg Mean Corpuscular Hemoglobin Concent 31 L 32-36 g/dL Red Cell Distribution Width 15.9 H 10.0-14.5 % Platelet Count 308 130-400 10^3/uL Mean Platelet Volume 10.1 9.0-12.2 fL Immature Granulocyte % (Auto) 0 % Neutrophils (%) (Auto) 59 42-75 % Lymphocytes (%) (Auto) 30 12-44 % Monocytes (%) (Auto) 7 0-12 % Eosinophils (%) (Auto) 3 0-10 % Basophils (%) (Auto) 1 0-10 % Neutrophils # (Auto) 4.2 1.8-7.8 10^3/uL Lymphocytes # (Auto) 2.2 1.0-4.0 10^3/uL Monocytes # (Auto) 0.5 0.0-1.0 10^3/uL Eosinophils # (Auto) 0.2 0.0-0.3 10^3/uL Basophils # (Auto) 0.0 0.0-0.1 10^3/uL Immature Granulocyte # (Auto) 0.0 0.0-0.1 10^3/uL Sodium Level 138 135-145 MMOL/L Potassium Level 4.2 3.6-5.0 MMOL/L Chloride Level 104 98-107 MMOL/L Carbon Dioxide Level 26 21-32 MMOL/L Anion Gap 8 5-14 MMOL/L Blood Urea Nitrogen 9 7-18 MG/DL Creatinine 0.71 0.60-1.30 MG/DL Estimat Glomerular Filtration Rate 105 BUN/Creatinine Ratio 13 Glucose Level 100 70-105 MG/DL Calcium Level 8.9 8.5-10.1 MG/DL Corrected Calcium 9.0 8.5-10.1 MG/DL Magnesium Level 2.1 1.6-2.4 MG/DL Total Bilirubin 0.2 0.1-1.0 MG/DL Aspartate Amino Transf (AST/SGOT) 12 5-34 U/L Alanine Aminotransferase (ALT/SGPT) 8 0-55 U/L Alkaline Phosphatase 82 40-136 U/L Troponin I < 0.30 <0.30 NG/ML Total Protein 6.8 6.4-8.2 GM/DL Albumin 3.9 3.2-4.5 GM/DL Thyroid Stimulating Hormone (TSH) 1.11 0.35-4.94 UIU/ML Serum Alcohol < 10 <10 MG/DL Influenza Type A (RT-PCR) Not Detected Not Detecte Influenza Type B (RT-PCR) Not Detected Not Detecte SARS-CoV-2 RNA (RT-PCR) Not Detected Not Detecte Urine Color STRAW Urine Clarity CLEAR Urine pH 6.0 5-9 Urine Specific [place] <=1.005 1.016-1.022 Urine Protein NEGATIVE NEGATIVE Urine Glucose (UA) NEGATIVE NEGATIVE Urine Ketones NEGATIVE NEGATIVE Urine Nitrite NEGATIVE NEGATIVE Urine Bilirubin NEGATIVE NEGATIVE Urine Urobilinogen 0.2 < = 1.0 MG/DL Urine Leukocyte Esterase NEGATIVE NEGATIVE Urine RBC (Auto) NEGATIVE NEGATIVE Urine RBC 2-5 H /HPF Urine WBC 5-10 H /HPF Urine Squamous Epithelial Cells 5-10 /HPF Urine Crystals NONE /LPF Urine Bacteria FEW H /HPF Urine Casts NONE /LPF Urine Mucus NEGATIVE /LPF Urine Culture Indicated YES Urine Opiates Screen NEGATIVE NEGATIVE Urine Oxycodone Screen NEGATIVE NEGATIVE Urine Methadone Screen NEGATIVE NEGATIVE Urine Propoxyphene Screen NEGATIVE NEGATIVE Urine Barbiturates Screen NEGATIVE NEGATIVE Ur Tricyclic Antidepressants Screen NEGATIVE NEGATIVE Urine Phencyclidine Screen NEGATIVE NEGATIVE Urine Amphetamines Screen NEGATIVE NEGATIVE Urine Methamphetamines Screen NEGATIVE NEGATIVE Urine Benzodiazepines Screen NEGATIVE NEGATIVE Urine Cocaine Screen NEGATIVE NEGATIVE Urine Cannabinoids Screen NEGATIVE NEGATIVE My Orders Orders - LICONA,YENIFER L DO Alcohol (07/30/23 10:30) Cbc With Automated Diff (07/30/23 10:30) Comprehensive Metabolic Panel (07/30/23 10:30) Drug Screen Stat (Urine) (07/30/23 10:30) Magnesium (07/30/23 10:30) Ua Culture If Indicated (07/30/23 10:30) Influenza A And B By Pcr (07/30/23 10:30) Troponin I Fs (07/30/23 10:30) Covid 19 Inhouse Test (07/30/23 10:30) Ns Iv 1000 Ml (Ns Iv 1000 Ml) (07/30/23 10:30) Ekg Tracing (07/30/23 10:30) Monitor-Rhythm Ecg Trace Only (07/30/23 10:30) Urine Bedside (07/30/23 10:30) Urine Culture (07/30/23 10:38) Thyroid Stimulating Hormone (07/30/23 10:34) Vital Signs/I&O 07/30/23 07/30/23 10:24 11:29 Temp 36.7 36.7 Pulse 70 57 Resp 16 16 B/P (MAP) 151/95 (113) 145/87 Pulse Ox 97 98 O2 Delivery Room Air Room Air Capillary Refill : Progress Note : Progress Note Patient's diagnostic studies were ordered reviewed and interpreted by me. Patient's labs showed no acute findings. Patient's EKG was reviewed and shows no acute findings. Patient's physical exam shows no acute findings. Patient's was complaining of generalized malaise but there is no notable findings to explain her generalized malaise. I discussed with her that there are multiple causes for this and that she should follow-up with her primary care provider for further outpatient evaluation. She does report that she was just recently diagnosed with lupus which might be contributing to it. She also may be dealing with some minor depression which could also cause her feelings that would be the most likely cause. Patient agrees to follow-up next week with her primary care provider for further outpatient evaluation. She was stable and discharged home. Patient's morbidity and mortality is increased due to her social determinants of health. ECG Initial ECG Impression Date: Jul 30, 2023 Initial ECG Impression Time: 10:46 Initial ECG Rate: 61 Initial ECG Rhythm: Normal Sinus Initial ECG Intervals: Normal Initial ECG Impression: Normal Comment no acute st elevation or changes noted Departure Impression Primary Impression: Malaise and fatigue Disposition: 01 HOME, SELF-CARE Condition: Stable Departure-Patient Inst. Referrals: LIBBY BROWN MD (PCP/Family) Primary Care Physician Patient Instructions: Fatigue ED, Generalized Weakness, Lupus (DC) Add. Discharge Instructions: Please follow-up with your primary care provider next week for further outpati ent evaluation and testing YENIFER LICONA DO Jul 30, 2023 10:30
[2023-07-30 10:40] LABS: BASOPHILS % (AUTO) 1 % (0-10); EOSINOPHILS # (AUTO) 0.2 10^3/uL (0.0-0.3); EOSINOPHILS % (AUTO) 3 % (0-10); HEMATOCRIT 35 % (35-52); HEMOGLOBIN 10.9 g/dL (11.5-16.0); LYMPHOCYTES # (AUTO) 2.2 10^3/uL (1.0-4.0); LYMPHOCYTES % (AUTO) 30 % (12-44); MEAN CORPUSCULAR HEMOGLOBIN 28 pg (25-34); MEAN CORPUSCULAR HGB CONC 31 g/dL (32-36); MEAN CORPUSCULAR VOLUME 88 fL (80-99); MEAN PLATELET VOLUME 10.1 fL (9.0-12.2); MONOCYTES # (AUTO) 0.5 10^3/uL (0.0-1.0); MONOCYTES % (AUTO) 7 % (0-12); NEUTROPHILS # (AUTO) 4.2 10^3/uL (1.8-7.8); NEUTROPHILS % (AUTO) 59 % (42-75); PLATELET COUNT 308 10^3/uL (130-400); WHITE BLOOD COUNT 7.1 10^3/uL (4.3-11.0)
[2023-07-30 10:48] LABS: BILIRUBIN,URINE NEGATIVE (NEGATIVE); CLARITY,URINE CLEAR; GLUCOSE, URINE (UA) NEGATIVE (NEGATIVE); KETONES,URINE NEGATIVE (NEGATIVE); LEUKOCYTE ESTERASE ,URINE NEGATIVE (NEGATIVE); NITRITE,URINE NEGATIVE (NEGATIVE); PROTEIN,URINE NEGATIVE (NEGATIVE)
[2023-07-30 10:53] LABS: BACTERIA,URINE FEW /HPF; COLOR,URINE STRAW
[2023-07-30 10:58] LABS: AMPHETAMINE SCREEN, URINE NEGATIVE (NEGATIVE); BARBITURATE SCREEN URINE NEGATIVE (NEGATIVE); BENZODIAZEPINES SCREEN URINE NEGATIVE (NEGATIVE); CANNABINOID SCREEN, URINE NEGATIVE (NEGATIVE); COCAINE SCREEN URINE NEGATIVE (NEGATIVE); METHADONE STAT NEGATIVE (NEGATIVE); OPIATE SCREEN URINE NEGATIVE (NEGATIVE); OXYCODONE STAT NEGATIVE (NEGATIVE); PROPOXYPHENE STAT NEGATIVE (NEGATIVE); TRICYCLIC ANTIDEPRESSANTS SCRE NEGATIVE (NEGATIVE)
[2023-07-30 10:59] LABS: ALANINE AMINOTRANSFERASE 8 U/L (0-55); ALBUMIN 3.9 GM/DL (3.2-4.5); ALKALINE PHOSPHATASE 82 U/L (40-136); BILIRUBIN,TOTAL 0.2 MG/DL (0.1-1.0); BUN/CREATININE RATIO 13; CALCIUM 8.9 MG/DL (8.5-10.1); CARBON DIOXIDE 26 MMOL/L (21-32); CHLORIDE 104 MMOL/L (98-107); CREATININE SERUM 0.71 MG/DL (0.60-1.30); GFR ESTIMATED 105; GLUCOSE 100 MG/DL (70-105); MAGNESIUM 2.1 MG/DL (1.6-2.4); POTASSIUM 4.2 MMOL/L (3.6-5.0); SODIUM 138 MMOL/L (135-145); TOTAL PROTEIN 6.8 GM/DL (6.4-8.2)
[2023-07-30 11:29] VITALS: BP 145/87
== END 2023-07-30 11:29 | disposition home or self-care (01) ==
LOC: EDUNIT# 10:24 → ER FS 10:25
DX: R53.81 Other malaise (principal); R53.83 Other fatigue; Z20.822 Contact with and (suspected) exposure to COVID-19
CPT/HCPCS: 36415; 80053; 80306; 80320; 81000; 83735; 84443; 84484; 85025; 87088; 87636; 93005

== ENCOUNTER 2023-10-13 06:20 | Outpatient (CLI) | payer MEDICAID ==
[~2023-10-13] VITALS: Ht 160 cm; Wt 78.5 kg
[~2023-10-13 06:20] MED LIST changes: +DICY-11 PO; -DICY10CA12 PO
[2023-10-13] MEDS ORDERED: VARE1TAB28 PO (10:20)
[2023-10-13] MEDS ORDERED: MIRA25TA PO (10:20)
[2023-10-13] MEDS ORDERED: SEMA0.253 SQ (10:20)
[2023-10-13] MEDS ORDERED: ESTR0.5T3 PO (10:20)
[2023-10-13] MEDS ORDERED: VORT20TA PO (10:20)
[2023-10-13] MEDS ORDERED: FERR-84 PO (10:20)
[2023-10-13] MEDS ORDERED: FLUT15.845 NS (10:20)
[2023-10-13] MEDS ORDERED: HYDR-700 PO (10:20)
[2023-10-13] MEDS ORDERED: PANT40TA52 PO (10:20)
[2023-10-13] MEDS ORDERED: QUET100T33 PO (10:20)
[2023-10-13] MEDS ORDERED: GBPN600T PO (10:20)
[2023-10-13] MEDS ORDERED: SUCR1TAB PO (10:20)
[2023-10-13] MEDS ORDERED: QUET400T13 PO (10:20)
[2023-10-13] MEDS ORDERED: ROPI1TAB46 PO (10:20)
[2023-10-13] MEDS ORDERED: ALEN70TA85 PO (10:20)
[2023-10-13] MEDS ORDERED: ROPI0.2533 PO (10:20)
== END 2023-10-13 10:21 | disposition home or self-care (01) ==
LOC: PREOP 06:20
PROVIDERS: ATTEND Surgery
DX: Z01.818 Encounter for other preprocedural examination (principal)

== ENCOUNTER 2023-10-18 09:46 | Day surgery (SDC) | payer MEDICAID ==
[~2023-10-18] VITALS: Ht 160 cm; Wt 78.5 kg
[~2023-10-18 09:46] MED LIST changes: +ALEN70TA85 PO; +ESTR0.5T3 PO; +FERR-84 PO; +FLUT15.845 NS; +GBPN600T PO; +HYDR-700 PO; +MIRA25TA PO; +PANT40TA52 PO; +QUET100T33 PO; +QUET400T13 PO; +ROPI0.2533 PO; +ROPI1TAB46 PO; +SEMA0.253 SQ; +SUCR1TAB PO; +VARE1TAB28 PO; +VORT20TA PO
[2023-10-18] MEDS ORDERED: LACTATED RINGERS 1,000 ML 1,000 ML IV STA (09:55)
[2023-10-18] MEDS ORDERED: HURRICAINE EXT TUBE (BENZOCAINE) XX PRN (10:00)
--- NOTE | 2023-10-18 10:12 | Progress Note-Pre Operative ---
Pre-Operative Progress Note Date of Available H&P: Oct 07, 2023 Date H&P Reviewed: Oct 18, 2023 Time H&P Reviewed: 10:09 History & Physical: H&P Reviewed, Patient Examed, No changes noted Pre-Operative Diagnosis: Epigastric pain FIDEL PALMER DO Oct 18, 2023 10:12
[2023-10-18 10:37] VITALS: BP 147/98
[2023-10-18] MEDS ORDERED: MIDAZOLAM INJ 2 MG/2 ML VIAL ONE (10:55)
[2023-10-18 11:16] VITALS: BP 89/52
[2023-10-18 11:21] VITALS: BP 101/62
[2023-10-18 11:37] VITALS: BP 102/64
[2023-10-18 11:52] VITALS: BP 102/64
--- NOTE | 2023-10-18 11:53 | Progress Note-Post Operative ---
Post-Operative Progess Note Surgeon (s)/Gas Turbine Assembler (s) Surgeon FIDEL PALMER DO Gas Turbine Assembler: none Pre-Operative Diagnosis Epigastric pain Post-Operative Diagnosis Gastritis Esophagitis Procedure & Operative Findings Date of Procedure 10/18/23 Procedure Performed/Findings EGD with biopsy PROCEDURE NOTE: After informed consent was obtained, the patient was brought to the endoscopy suite, placed in bed in left lateral decubitus position. She was administered IV sedation by the CONVEYOR LINE BAKERY WORKER who then monitored vitals the entire time, heart rate, blood pressure and pulse ox and the scope was inserted down the mouth through the esophagus into the stomach. On the way down, noted some mild esophagitis, took a picture, pushed into the stomach and immediately got into the small intestine; it looked good. Pulled back and did a biopsy of the G-J junction; there was some inflammation but I really didn't see any ulcers. I also could not find a second limb of intestine. I then pulled the scope into the GE junction, took another picture and then did a biopsy of the GE junction. Pushed the scope back into the stomach, suctioned all the air out of the stomach. At this point pulled the scope up the esophagus and out the mouth. The patient tolerated the procedure, and she recovered in endoscopy suite. Anesthesia Type IV sedation by CONVEYOR LINE BAKERY WORKER Estimated Blood Loss Estimated blood loss (mL): scant Specimens/Packing Specimens Removed GJ jxn gastric body GE jxn FIDEL PALMER DO Oct 18, 2023 11:53
--- NOTE | 2023-10-18 11:54 | Endoscopy Discharge Instruct ---
Endo Procedure/Findings Findings 1.: Gastritis 2.: Other Findings (esophagitis) Discharge Instructions - Activity: You might feel a little sleepy until tomorrow. This is due to the medicine you received to relax you. Until tomorrow, you should: NOT drive a car, operate machinery or power tools. NOT drink any alcoholic beverages. NOT make any important decisions or sign importortant papers. Do not return to work until tomorrow, unless otherwise instructed. Resume previous activities tomorrow. Diet: Start by taking liquids. If you tolerate liquids, advance to solid food. 2.: EGD in 3 years Notify Physician - If you experience excessive bleeding, unusual abdominal pain, fever, or chest pain, contact your doctor immediately. Follow-Up: Other Follow up in my office in one week FIDEL PALMER DO Oct 18, 2023 11:54
--- NOTE | 2023-10-18 15:22 | Anesthesia-General Post-Op ---
MAC Patient Condition Mental Status/LOC: Same as Preop Cardiovascular: Satisfactory Nausea/Vomiting: Absent Respiratory: Satisfactory Pain: Controlled Complications: Absent Post Op Complications Complications None Follow Up Care/Instructions Patient Instructions None needed. Anesthesiology Discharge Order Discharge Order Patient is doing well, no complaints, stable vital signs, no apparent adverse anesthesia problems. No complications reported per nursing. LUNA HENLEY INSTALLER METAL FLOORING Oct 18, 2023 15:22
== END 2023-10-18 12:05 | disposition home or self-care (01) ==
LOC: ENDO 09:46
PROVIDERS: ATTEND Surgery
DX: K21.00 Gastro-esophageal reflux disease with esophagitis, without bleeding (principal); K29.70 Gastritis, unspecified, without bleeding; K22.70 Barrett's esophagus without dysplasia; K31.89 Other diseases of stomach and duodenum; E66.9 Obesity, unspecified; F17.210 Nicotine dependence, cigarettes, uncomplicated; Z68.30 Body mass index [BMI] 30.0-30.9, adult; Z79.899 Other long term (current) drug therapy; Z98.84 Bariatric surgery status
CPT/HCPCS: 88305